=== PATIENT | male | born 1945 | race African-American/Black ===

== ENCOUNTER 2017-03-27 06:33 | Day surgery (SDC) | payer OTHER ==
[~2017-03-27] VITALS: Ht 182.9 cm; Wt 143.2 kg
[~2017-03-27 06:33] MED LIST: ACET325S8 PO; ALBU8I INH; ALLO300 PO; ASPI81TA82 PO; BENGCRE TOP; CARD180C5 PO; CYCL-36 PO; DENT1.1G; HYDR200T3 PO; LEVO50TA4 PO; LORA-474 PO; LORA1TAB PO; MAOX420T PO; OXYC-392 PO; PANT40TA3 PO; POLY1.4S EACH EYE; POTA-267 PO; PRAZ5 PO; PROZ20CA11 PO; REME45TA PO; VITA100020 PO; VITA20003 PO
[2017-03-27 07:00] VITALS: BP 176/83; PULSE 81; RESP 20; TEMP 97.5; O2SAT 93
[2017-03-27] MEDS ORDERED: SODIUM CHLOR 0.9% 1000 ML IV SCH (07:00)
[2017-03-27] MEDS ORDERED: SODIUM CHLORIDE 2 ML FLUSH PRN IV FLUSH (07:00)
[2017-03-27] MEDS ORDERED: GABA100C4 PO (07:03)
[2017-03-27] MEDS ORDERED: CALC1TAB87 PO (07:03)
[2017-03-27] MEDS ORDERED: TEST200I12 IM (07:03)
[2017-03-27] MEDS ORDERED: VENTAER INH (07:03)
[2017-03-27] MEDS ORDERED: TYLE325T PO (07:03)
[2017-03-27] MEDS ORDERED: FLUO20CA12 PO (07:03)
[2017-03-27] MEDS ORDERED: MORP60TA24 PO (07:03)
[2017-03-27] MEDS ORDERED: FAMO20TA2 PO (07:03)
[2017-03-27] MEDS ORDERED: MELO15TA20 PO (07:03)
[2017-03-27] MEDS ORDERED: LEVO75TA3 PO (07:03)
[2017-03-27] MEDS ORDERED: CYCL10TA PO (07:03)
[2017-03-27] MEDS ORDERED: PLAQ200T PO (07:03)
[2017-03-27] MEDS ORDERED: MULT-65 PO (07:03)
[2017-03-27 07:31] LABS: AUTOMATED NEUTROPHIL # 3.6 TH/MM3 (1.8-7.7); BASOPHIL % 0.7 % (0.0-2.0); EOSINOPHIL # 0.2 TH/MM3 (0-0.4); EOSINOPHIL % 3.5 % (0.0-4.0); HEMATOCRIT 34.9 % (39.0-51.0); HEMO FLAGS DIFF FINAL; LYMPH % 30.8 % (9.0-44.0); LYMPHOCYTE # 1.9 TH/MM3 (1.0-4.8); MEAN CORPUSCULAR HEMOGLOBIN 31.4 PG (27.0-34.0); MEAN CORPUSCULAR HGB CONC 32.4 % (32.0-36.0); MONO % 8.1 % (0.0-8.0); NEUT % 56.9 % (16.0-70.0); PLATELET COUNT 174 TH/MM3 (150-450); RED CELL DISTRIBUTION WIDTH 16.6 % (11.6-17.2); WHITE BLOOD COUNT 6.3 TH/MM3 (4.0-11.0)
[2017-03-27 07:40] LABS: APTT (PATIENT) 26.5 SEC (24.3-30.1); PROTHROMBIN TIME - PATIENT 10.5 SEC (9.8-11.6)
[2017-03-27] MEDS ORDERED: LIDOCAINE 1%/EPINEPHrine 1:100,000 SOLN 20 ML VIAL ONE (07:47)
[2017-03-27] MEDS ORDERED: MIDAZOLAM HCL 2 MG/2 ML VIAL ONE (08:14)
[2017-03-27] MEDS ORDERED: THROMBIN (TOPICAL) 5,000 UNIT VIAL ONE (08:21)
[2017-03-27] MEDS ORDERED: ONDANSETRON HCL 4 MG/2 ML VIAL ONE (08:22)
[2017-03-27] MEDS ORDERED: diphenhydrAMINE HCL 50 MG/ML VIAL ONE (08:22)
[2017-03-27] MEDS ORDERED: HYDROmorphone HCL PF 2 MG/ML VIAL ONE ×2 (08:39→08:46)
--- NOTE | 2017-03-27 08:56 | PD.RAD ---
Post CT Procedure Prog Note Pre Procedure Diagnosis: (1) Anemia Post Procedure Diagnosis: (1) Anemia Procedure Date: Mar 27, 2017 Supervising Radiologist: Jeff Holt JR Anesthesia: Conscious Sedation Plan of Activity Patient to Unit: [facility]OP[facility] Patient Condition: Good See PACS Report for procedural detail/treatment Biopsy Imaging Guidance: CT Side: Left Biopsy Procedure: Bone Marrow Specimen: Core Biopsy, Fine Needle Aspirate Findings: BM biopsy and aspiration. Good samples noted. Jr. Jonathon,Jeff Castillo MD Mar 27, 2017 08:56
[2017-03-27] MEDS ORDERED: SODIUM CHLORIDE 2 ML FLUSH BID IV FLUSH SCH (09:00)
[2017-03-27 09:15] VITALS: BP 129/58; PULSE 76; RESP 18; TEMP 97.2; O2SAT 95
[2017-03-27 09:30] VITALS: BP 159/71; PULSE 77; RESP 18; O2SAT 95
[2017-03-27 09:53] LABS: BONE MARROW PROCESSING COMPLETE; IRON STAIN DONE; JENNER GIEMSA STAIN DONE
--- NOTE | 2017-03-27 09:57 | RADRPT ---
EXAM DATE/TIME: 03/27/2017 08:25 [place] COMPARISON: No previous studies available for comparison. INDICATIONS : Monoclonal gammopathy and anemia. SEDATION TIME: 30 minutes BIOPSY SITE: Left MEDICATION(S): 1.) 6 mg midazolam (Versed) IV 2.) 4 mg hydromorphone (Dilaudid) IV 3.) 100 mcg fentanyl (Sublimaze) IV DEVICE(S): 1.) 11 gauge Bone marrow biopsy needle MEDICAL HISTORY : Hypertension. Anemia SURGICAL HISTORY : None. ENCOUNTER: Initial ACUITY: 1 day PAIN SCORE: 0/10 LOCATION: Left A total of one core specimen(s) were obtained and sent to the laboratory for pathologic evaluation. PROCEDURE: 1. CT guided bone marrow biopsy. 2. Conscious sedation with continuous EKG and oximetry monitoring. 3. EKG and oximetry remained stable throughout the procedure. Prior to the procedure informed consent was obtained. Any appropriate prior imaging studies were rev iewed. Using automated exposure control and adjustment of the mA and/or kV according to patient size , radiation dose was kept as low as reasonably achievable to obtain optimal diagnostic quality images . DICOM format image data is available electronically for review and comparison. The site was prepped in a sterile fashion. Full sterile technique was used, including cap, mask, saadia rile gloves and gown and a large sterile sheet. Hand hygiene and 2% chlorhexidine and/or betadine/al cohol prep was utilized per protocol for cutaneous antisepsis. The skin and subcutaneous tissues wer e infiltrated with local anesthetic solution. With CT guidance the previously identified target was localized. Biopsy was performed using the presc ribed needle as above. Following biopsy marrow aspiration was performed with repeat puncture. [place] te hemostasis was obtained with compression at the puncture site. Conscious sedation was performed with the prescribed dosages and duration as above in the presence of an independent trained radiology nurse to assist in the monitoring of the patient. EKG and oximetry remained stable throughout the procedure. The patient tolerated the procedure well and there were no complications. The patient was sent to Radiology Outpatient Unit in stable condition. CONCLUSION: 1. Uncomplicated CT guided bone marrow aspirate. 2. Uncomplicated CT guided bone marrow biopsy. Jeff Holt Jr., MD on March 27, 2017 at 9:55 Board Certified Radiologist. This report was verified electronically.
[2017-03-27 10:00] VITALS: BP 149/60; PULSE 77; RESP 18; O2SAT 95
[2017-03-27 10:30] VITALS: BP 127/60; PULSE 77; RESP 18; O2SAT 96
[2017-03-27 11:00] VITALS: BP 136/75; PULSE 70; RESP 18; O2SAT 94
== END 2017-03-27 12:15 | disposition home or self-care (01) ==
LOC: HRAD 06:33 → HRIP 06:38 → HRAD 12:15
PROVIDERS: ATTEND Internal Medicine
DX: D47.2 Monoclonal gammopathy (principal); D64.9 Anemia, unspecified; I10 Essential (primary) hypertension
CPT/HCPCS: 38221; 77012; 85025; 85097; 85610; 85730; 88184; 88185; 88237; 88264; 88280; 88305; 88311; 88313; 88341; 88342; 99152; 99153; C1830; G0364; J1170; J1200; J2250; J3010; J2405

== ENCOUNTER 2017-12-11 17:13 | Inpatient (IN) ==
--- NOTE | 2017-12-11 17:35 | ED ---
HPI General Chief Complaint: Neuro Symptoms/Deficit Stated Complaint: Neuro Time Seen by Provider: 12/11/17 17:25 Source: patient and family Mode of arrival: wheelchair Limitations: altered mental status History of Present Illness HPI narrative: Per daughter he was last seen normal last night. This morning when he was taken to a seniors group friends of his noted that he was not acting himself and seemed confused. However afterwards that function finished around 1:00 PM in the afternoon and he was still acting confused and now he was having more trouble ambulating on his own. Patient was brought in by private vehicle to emergency department for further evaluation MD complaint: confusion Timing confirmed by: family member Severity: moderate Consistency of symptoms: getting worse Related Data Home Medications Medication Instructions Recorded Confirmed Calcium 600 1 tab PO BID 12/12/17 12/12/17 albuterol sulfate 1 puff INHALATION Q4HR PRN 12/12/17 12/12/17 amlodipine-benazepril 1 cap PO DAILY 12/12/17 12/12/17 cholecalciferol (vitamin D3) 1 tab PO DAILY 12/12/17 12/12/17 cyanocobalamin (vitamin B-12) 1 tab PO DAILY 12/12/17 12/12/17 cyclobenzaprine 1 tab PO BID 12/12/17 12/12/17 diltiazem HCl 180 mg PO DAILY 12/12/17 12/12/17 enalapril maleate 5 mg PO DAILY 12/12/17 12/12/17 fluoxetine 20 mg PO TID 12/12/17 12/12/17 fluticasone [Flonase Allergy 1 spray INTRANASAL DAILY 12/12/17 12/12/17 Relief] furosemide [Lasix] 40 mg PO DAILY 12/12/17 12/12/17 hydroxychloroquine [Plaquenil] 1 tab PO BID 12/12/17 12/12/17 levothyroxine 75 mcg PO DAILY 12/12/17 12/12/17 mometasone [Asmanex Twisthaler] See Label Instructions .ROUTE 12/12/17 12/12/17 .COMPLEX omeprazole 1 cap PO BID 12/12/17 12/12/17 oxycodone 1 tab PO DAILY PRN 12/12/17 12/12/17 terazosin 5 mg PO DAILY 12/12/17 12/12/17 testosterone cypionate 200 mg IM Q2W 12/12/17 12/12/17 triamcinolone acetonide 1 applic TOPICAL BID 12/12/17 12/12/17 triamterene-hydrochlorothiazid 1 cap PO DAILY 12/12/17 12/12/17 Allergies Allergy/AdvReac Type Severity Reaction Status Date / Time diclofenac Allergy Severe Bleeding Unverified 12/11/17 17:25 etodolac Allergy Severe Bleeding Unverified 12/11/17 17:25 flurbiprofen Allergy Severe Bleeding Unverified 12/11/17 17:25 ibuprofen Allergy Severe Bleeding Unverified 12/11/17 17:25 indomethacin Allergy Severe Bleeding Unverified 12/11/17 17:25 ketoprofen Allergy Severe Bleeding Unverified 12/11/17 17:25 ketorolac Allergy Severe Bleeding Unverified 12/11/17 17:25 naproxen Allergy Severe Bleeding Unverified 12/11/17 17:25 oxaprozin Allergy Severe Bleeding Unverified 12/11/17 17:25 acetaminophen Allergy Mild Bleeding Unverified 12/11/17 17:25 celecoxib Allergy Mild Bleeding Unverified 12/11/17 17:25 propoxyphene Allergy Mild Bleeding Unverified 12/11/17 17:25 Review of Systems Except as stated in HPI: all other systems reviewed are negative PMFSH History History Provided By: Patient Social History Social History Substance History: Unable to Obtain Second Hand Smoke Exposure: No Smoking Status: Unknown if ever smoked How Often Do You Have a Drink Containing Alcohol: Unable to Obtain Exam Narrative Exam Narrative: GENERAL: patient appeared confused and findings suggestive of intoxication as patient is slow to respond but responded adequately ( orientation to year, month, president, place, name) SKIN: Warm and dry. HEAD: Atraumatic. Normocephalic. EYES: Pupils equal and round. No scleral icterus. No injection or drainage. ENT: No nasal bleeding or discharge. Mucous membranes pink and moist. NECK: Trachea midline. No JVD. CARDIOVASCULAR: Regular rate and rhythm. no rubs or gallops RESPIRATORY: No accessory muscle use. Clear to auscultation. Breath sounds equal bilaterally. GASTROINTESTINAL: obese, Abdomen soft, non-tender, nondistended. No rebound or guarding MUSCULOSKELETAL: Extremities without clubbing, cyanosis, or edema. No obvious deformities. NEUROLOGICAL: Awake but partially confused gcs 14/15, bilateral LE sensation intact, however, too weak to sustain his body weight, upper motor 5/5, no facial weakness...somnolent appearance, keeping good tv, pulse ox 98% Course Initial Documented Vital Signs Temperature 98.3 F 12/11/17 17:18 Pulse Rate 61 12/11/17 17:18 Respiratory Rate 20 12/11/17 17:18 Blood Pressure 125/57 L 12/11/17 17:18 Pulse Oximetry 95 12/11/17 17:18 Last Documented Vital Signs Temperature 97.9 F 12/14/17 08:00 Pulse Rate 67 12/14/17 08:00 Respiratory Rate 20 12/14/17 08:07 Blood Pressure 183/84 H 12/14/17 08:00 Pulse Oximetry 99 12/14/17 08:00 Critical Care Time Critical Care Time: Yes Total Critical Care Time: 30 Attestation: Aggregate critical care time was 30 minutes. Time to perform other separately billable procedures was not included in the critical care time. My time did not include minutes spent treating any other patients simultaneously or on activities that did not directly contribute to the patient's treatment. The services I provided to this patient were to treat and/or prevent clinically significant deterioration that could result in: [Permanent disability and or ] I provided critical care services requiring my management, as noted below: Chart data review, documentation time, medication orders and management, vital sign assessments/reviewing monitor data, ordering and reviewing lab tests, ordering and interpreting/reviewing x-rays and diagnostic studies, care of the patient and discussion of the patient with the admitting physicians. Medical Decision Making MDM Narrative Medical decision making narrative: CBC interpretation shows no leukocytosis, no left shift, normal platelet count, and mild anemia of 9.4/29.[address] read by radiologist as no acute intracranial abnormality such as intracranial hemorrhage, mass or bleed. Due to patient's somnolence a small amount of Narcan 0.8 was given as an IV 1 dose, the patient became much more alert and was complaining of pain at this point, I made the patient aware that he was not going to get receive any additional pain medication, because I believe that he was too somnolent secondary to polypharmacy. The daughter stated that he was recently started on Neurontin in addition to morphine and oxycodone that he takes on a regular basis for his neuropathy and fibromyalgia. Lab Data Result diagrams: 12/12/17 12:05 12/14/17 03:53 Lab Results 12/11/17 12/11/17 12/11/17 Range/Units 17:35 17:35 17:35 WBC 7.5 (4.0-11.0) th/mm3 RBC 3.02 L (4.50-5.90) mil/mm3 Hgb 9.4 L (13.0-17.0) gm/dL Hct 29.1 L (39.0-51.0) % MCV 96.1 (80.0-100.0) fL MCH 30.9 (27.0-34.0) pg MCHC 32.2 (32.0-36.0) % RDW 15.2 (11.6-17.2) % Plt Count 157 (150-450) th/mm3 MPV 9.1 (7.0-11.0) fL Neut % (Auto) 60.5 (16.0-70.0) % Lymph % (Auto) 28.7 (9.0-44.0) % Sterling % (Auto) 7.3 (0.0-8.0) % Eos % (Auto) 2.9 (0.0-4.0) % Baso % (Auto) 0.6 (0.0-2.0) % Neut # (Auto) 4.6 (1.8-7.7) th/mm3 Lymph # (Auto) 2.2 (1.0-4.8) th/mm3 Sterling # (Auto) 0.6 (0.0-0.9) th/mm3 Eos # (Auto) 0.2 (0.0-0.4) th/mm3 Baso # (Auto) 0.0 (0.0-0.2) th/mm3 WBC Differential . Differential Comment Auto diff final Sodium 138 (136-145) meq/L Potassium 4.1 (3.5-5.1) meq/L Chloride 105 (98-107) meq/L Carbon Dioxide 25.6 (21.0-32.0) meq/L Anion Gap 7 (5-15) meq/L BUN 46 H (7-18) mg/dL Creatinine 3.82 H (0.60-1.30) mg/dL Estimated GFR 19 L (>89) mL/min Random Glucose 102 (74-106) mg/dL Calcium 8.2 L (8.5-10.1) mg/dL Phosphorus (2.5-4.9) mg/dL Magnesium (1.5-2.5) mg/dL Total Bilirubin 0.2 (0.2-1.0) mg/dL Direct Bilirubin (0.0-0.2) mg/dL Indirect Bilirubin (0.0-0.8) mg/dL AST 18 (15-37) U/L ALT 23 (12-78) U/L Alkaline Phosphatase 101 (45-117) U/L Ammonia 29 (11-32) mcmol/L Troponin I Less than 0.02 L (0.02-0.05) ng/mL Total Protein 7.1 (6.4-8.2) g/dL Total Protein (PEP) (6.4-8.2) gm/dL Albumin 3.1 L (3.4-5.0) g/dL Vitamin B12 (193-986) pg/mL TSH 2.320 (0.358-3.740) uIU/mL Urine Color (Yellw/Straw) Urine Clarity (Clear) Urine pH (5.0-8.5) Ur Specific [place] (1.002-1.035) Urine Protein (Neg-Trace) mg/dL Urine Glucose (UA) (Negative) mg/dL Urine Ketones (Negative) mg/dL Urine Occult Blood (Negative) Urine Nitrate (Negative) Urine Bilirubin (Negative) Urine Urobilinogen (Less than 2) mg/dL Ur Leukocyte Esterase (Negative) Urine RBC (0-3) /hpf Urine WBC (0-5) /hpf Ur Squamous Epith Cells (0-5) /hpf Hyaline Casts (0-3) /lpf Urine Mucus (Occasional) /lpf Micro UA Comment Urine Culture Comments Urine Opiates Screen (Neg) Ur Barbiturates Screen (Neg) Ur Amphetamines Screen (Neg) U Benzodiazepines Scrn (Neg) Urine Cocaine Screen (Neg) U Cannabinoids Screen (Neg) Serum Alcohol Less than 3 (0-5) mg/dL 07/31/18 07/31/18 08/01/18 Range/Units 20:20 20:20 12:05 WBC 6.2 (4.0-11.0) th/mm3 RBC 3.20 L (4.50-5.90) mil/mm3 Hgb 10.0 L (13.0-17.0) gm/dL Hct 30.7 L (39.0-51.0) % MCV 95.8 (80.0-100.0) fL MCH 31.1 (27.0-34.0) pg MCHC 32.5 (32.0-36.0) % RDW 15.1 (11.6-17.2) % Plt Count 160 (150-450) th/mm3 MPV 9.8 (7.0-11.0) fL Neut % (Auto) 63.5 (16.0-70.0) % Lymph % (Auto) 26.5 (9.0-44.0) % Sterling % (Auto) 5.9 (0.0-8.0) % Eos % (Auto) 3.6 (0.0-4.0) % Baso % (Auto) 0.5 (0.0-2.0) % Neut # (Auto) 3.9 (1.8-7.7) th/mm3 Lymph # (Auto) 1.6 (1.0-4.8) th/mm3 Sterling # (Auto) 0.4 (0.0-0.9) th/mm3 Eos # (Auto) 0.2 (0.0-0.4) th/mm3 Baso # (Auto) 0.0 (0.0-0.2) th/mm3 WBC Differential . Differential Comment Auto diff final Sodium (136-145) meq/L Potassium (3.5-5.1) meq/L Chloride (98-107) meq/L Carbon Dioxide (21.0-32.0) meq/L Anion Gap (5-15) meq/L BUN (7-18) mg/dL Creatinine (0.60-1.30) mg/dL Estimated GFR (>89) mL/min Random Glucose (74-106) mg/dL Calcium (8.5-10.1) mg/dL Phosphorus (2.5-4.9) mg/dL Magnesium (1.5-2.5) mg/dL Total Bilirubin (0.2-1.0) mg/dL Direct Bilirubin (0.0-0.2) mg/dL Indirect Bilirubin (0.0-0.8) mg/dL AST (15-37) U/L ALT (12-78) U/L Alkaline Phosphatase (45-117) U/L Ammonia (11-32) mcmol/L Troponin I (0.02-0.05) ng/mL Total Protein (6.4-8.2) g/dL Total Protein (PEP) (6.4-8.2) gm/dL Albumin (3.4-5.0) g/dL Vitamin B12 (193-986) pg/mL TSH (0.358-3.740) uIU/mL Urine Color Yellow (Yellw/Straw) Urine Clarity Clear (Clear) Urine pH 5.0 (5.0-8.5) Ur Specific [place] 1.013 (1.002-1.035) Urine Protein 100 H (Neg-Trace) mg/dL Urine Glucose (UA) Negative (Negative) mg/dL Urine Ketones Negative (Negative) mg/dL Urine Occult Blood Negative (Negative) Urine Nitrate Negative (Negative) Urine Bilirubin Negative (Negative) Urine Urobilinogen 2.0 H (Less than 2) mg/dL Ur Leukocyte Esterase Negative (Negative) Urine RBC 1 (0-3) /hpf Urine WBC 2 (0-5) /hpf Ur Squamous Epith Cells <1 (0-5) /hpf Hyaline Casts 16 (0-3) /lpf Urine Mucus Few H (Occasional) /lpf Micro UA Comment Cath-culture not ind Urine Culture Comments Cath-cult not ind Urine Opiates Screen Pos H (Neg) Ur Barbiturates Screen Neg (Neg) Ur Amphetamines Screen Neg (Neg) U Benzodiazepines Scrn Neg (Neg) Urine Cocaine Screen Neg (Neg) U Cannabinoids Screen Neg (Neg) Serum Alcohol (0-5) mg/dL 12/12/17 12/12/17 12/13/17 Range/Units 12:05 12:05 05:12 WBC (4.0-11.0) th/mm3 RBC (4.50-5.90) mil/mm3 Hgb (13.0-17.0) gm/dL Hct (39.0-51.0) % MCV (80.0-100.0) fL MCH (27.0-34.0) pg MCHC (32.0-36.0) % RDW (11.6-17.2) % Plt Count (150-450) th/mm3 MPV (7.0-11.0) fL Neut % (Auto) (16.0-70.0) % Lymph % (Auto) (9.0-44.0) % Sterling % (Auto) (0.0-8.0) % Eos % (Auto) (0.0-4.0) % Baso % (Auto) (0.0-2.0) % Neut # (Auto) (1.8-7.7) th/mm3 Lymph # (Auto) (1.0-4.8) th/mm3 Sterling # (Auto) (0.0-0.9) th/mm3 Eos # (Auto) (0.0-0.4) th/mm3 Baso # (Auto) (0.0-0.2) th/mm3 WBC Differential Differential Comment Sodium 141 146 H (136-145) meq/L Potassium 4.1 4.3 (3.5-5.1) meq/L Chloride 107 113 H (98-107) meq/L Carbon Dioxide 26.0 27.6 (21.0-32.0) meq/L Anion Gap 8 5 (5-15) meq/L BUN 43 H 39 H (7-18) mg/dL Creatinine 2.40 H 1.74 H (0.60-1.30) mg/dL Estimated GFR 33 L 47 L (>89) mL/min Random Glucose 122 H 94 (74-106) mg/dL Calcium 8.5 8.0 L (8.5-10.1) mg/dL Phosphorus 2.5 (2.5-4.9) mg/dL Magnesium 1.7 (1.5-2.5) mg/dL Total Bilirubin 0.1 L (0.2-1.0) mg/dL Direct Bilirubin Less than 0.1 (0.0-0.2) mg/dL Indirect Bilirubin 0.0 (0.0-0.8) mg/dL AST 15 (15-37) U/L ALT 17 (12-78) U/L Alkaline Phosphatase 91 (45-117) U/L Ammonia (11-32) mcmol/L Troponin I (0.02-0.05) ng/mL Total Protein 6.2 L D (6.4-8.2) g/dL Total Protein (PEP) 6.2 L (6.4-8.2) gm/dL Albumin 2.5 L D (3.4-5.0) g/dL Vitamin B12 801 (193-986) pg/mL TSH 0.749 (0.358-3.740) uIU/mL Urine Color (Yellw/Straw) Urine Clarity (Clear) Urine pH (5.0-8.5) Ur Specific [place] (1.002-1.035) Urine Protein (Neg-Trace) mg/dL Urine Glucose (UA) (Negative) mg/dL Urine Ketones (Negative) mg/dL Urine Occult Blood (Negative) Urine Nitrate (Negative) Urine Bilirubin (Negative) Urine Urobilinogen (Less than 2) mg/dL Ur Leukocyte Esterase (Negative) Urine RBC (0-3) /hpf Urine WBC (0-5) /hpf Ur Squamous Epith Cells (0-5) /hpf Hyaline Casts (0-3) /lpf Urine Mucus (Occasional) /lpf Micro UA Comment Urine Culture Comments Urine Opiates Screen (Neg) Ur Barbiturates Screen (Neg) Ur Amphetamines Screen (Neg) U Benzodiazepines Scrn (Neg) Urine Cocaine Screen (Neg) U Cannabinoids Screen (Neg) Serum Alcohol (0-5) mg/dL 12/14/17 Range/Units 03:53 WBC (4.0-11.0) th/mm3 RBC (4.50-5.90) mil/mm3 Hgb (13.0-17.0) gm/dL Hct (39.0-51.0) % MCV (80.0-100.0) fL MCH (27.0-34.0) pg MCHC (32.0-36.0) % RDW (11.6-17.2) % Plt Count (150-450) th/mm3 MPV (7.0-11.0) fL Neut % (Auto) (16.0-70.0) % Lymph % (Auto) (9.0-44.0) % Sterling % (Auto) (0.0-8.0) % Eos % (Auto) (0.0-4.0) % Baso % (Auto) (0.0-2.0) % Neut # (Auto) (1.8-7.7) th/mm3 Lymph # (Auto) (1.0-4.8) th/mm3 Sterling # (Auto) (0.0-0.9) th/mm3 Eos # (Auto) (0.0-0.4) th/mm3 Baso # (Auto) (0.0-0.2) th/mm3 WBC Differential Differential Comment Sodium 145 (136-145) meq/L Potassium 4.3 (3.5-5.1) meq/L Chloride 111 H (98-107) meq/L Carbon Dioxide 29.5 (21.0-32.0) meq/L Anion Gap 5 (5-15) meq/L BUN 27 H (7-18) mg/dL Creatinine 1.37 H (0.60-1.30) mg/dL Estimated GFR 62 L (>89) mL/min Random Glucose 84 (74-106) mg/dL Calcium 8.1 L (8.5-10.1) mg/dL Phosphorus (2.5-4.9) mg/dL Magnesium (1.5-2.5) mg/dL Total Bilirubin (0.2-1.0) mg/dL Direct Bilirubin (0.0-0.2) mg/dL Indirect Bilirubin (0.0-0.8) mg/dL AST (15-37) U/L ALT (12-78) U/L Alkaline Phosphatase (45-117) U/L Ammonia (11-32) mcmol/L Troponin I (0.02-0.05) ng/mL Total Protein (6.4-8.2) g/dL Total Protein (PEP) (6.4-8.2) gm/dL Albumin (3.4-5.0) g/dL Vitamin B12 (193-986) pg/mL TSH (0.358-3.740) uIU/mL Urine Color (Yellw/Straw) Urine Clarity (Clear) Urine pH (5.0-8.5) Ur Specific [place] (1.002-1.035) Urine Protein (Neg-Trace) mg/dL Urine Glucose (UA) (Negative) mg/dL Urine Ketones (Negative) mg/dL Urine Occult Blood (Negative) Urine Nitrate (Negative) Urine Bilirubin (Negative) Urine Urobilinogen (Less than 2) mg/dL Ur Leukocyte Esterase (Negative) Urine RBC (0-3) /hpf Urine WBC (0-5) /hpf Ur Squamous Epith Cells (0-5) /hpf Hyaline Casts (0-3) /lpf Urine Mucus (Occasional) /lpf Micro UA Comment Urine Culture Comments Urine Opiates Screen (Neg) Ur Barbiturates Screen (Neg) Ur Amphetamines Screen (Neg) U Benzodiazepines Scrn (Neg) Urine Cocaine Screen (Neg) U Cannabinoids Screen (Neg) Serum Alcohol (0-5) mg/dL Imaging Data Radiologist's impression: Abdomen/Bladder Ultrasound 12/11/17 00:00 CONCLUSION: 1. 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 2. 6.3 cm lower pole left renal cyst. 3. Overall no significant change from February 2016. Chest X-Ray 12/11/17 17:26 CONCLUSION: Mild cardiac enlargement. Minimal basilar or dependent atelectasis. Head CT 12/11/17 17:26 CONCLUSION: 1. No acute intracranial abnormality. . Discharge Plan Discharge Disposition Patient Disposition: 30 Still Patient Discharge Condition Condition: Stable Discharge Details Diagnosis: Acute alteration in mental status Physicians Team ED Provider: Trev Field Primary Care Provider: Kanwal Parsons Attending Provider: Hank Griffith Other Providers: Esther Dietz ; Amy,[employer] Status ED Status: Left Department Discharge Information Discharge Date/Time: 12/11/17 21:27
[2017-12-11] MEDS: Sod Chloride 0.9% Inj 1,000 ML IV.CONT SCH (17:58)
[2017-12-11 18:04] LABS: Baso % (Auto) 0.6 % (0.0-2.0); Eos # (Auto) 0.2 th/mm3 (0.0-0.4); Eos % (Auto) 2.9 % (0.0-4.0); Hematocrit 29.1 % (39.0-51.0); Hemoglobin 9.4 gm/dL (13.0-17.0); Lymph # (Auto) 2.2 th/mm3 (1.0-4.8); Lymph % (Auto) 28.7 % (9.0-44.0); Mean Corpuscular HGB Conc 32.2 % (32.0-36.0); Mean Corpuscular Hemoglobin 30.9 pg (27.0-34.0); Mean Corpuscular Volume 96.1 fL (80.0-100.0); Mean Platelet Volume 9.1 fL (7.0-11.0); Mono # (Auto) 0.6 th/mm3 (0.0-0.9); Mono % (Auto) 7.3 % (0.0-8.0); Neut # (Auto) 4.6 th/mm3 (1.8-7.7); Neut % (Auto) 60.5 % (16.0-70.0); Platelet Count 157 th/mm3 (150-450); Red Blood Count 3.02 mil/mm3 (4.50-5.90); Red Cell Distribution Width 15.2 % (11.6-17.2); White Blood Count 7.5 th/mm3 (4.0-11.0)
--- NOTE | 2017-12-11 18:10 | CT ---
EXAM DATE: 12/11/2017 6:04 PM EDT AGE/SEX: 72 years / Male INDICATIONS: Altered mental status. CLINICAL DATA: This is the patient's initial encounter. Patient reports that signs and symptoms have been present for 1 day and indicates a pain score of 5/10. MEDICAL/SURGICAL HISTORY: None. None. RADIATION DOSE: 46.42 CTDI (mGy) COMPARISON: No prior exams available for comparison. TECHNIQUE: CT of the head without contrast. Using automated exposure control and adjustment of the mA and/or kV according to patient size, radiation dose was kept as low as reasonably achievable to ob tain optimal diagnostic quality images. DICOM format image data is available electronically for revi ew and comparison. FINDINGS: Cerebrum: The ventricles are normal for age. No evidence of midline shift, mass lesion, hemorrhage or acute infarction. No extraaxial fluid collections are seen. Posterior Fossa: The cerebellum and brainstem are intact. The 4th ventricle is midline. The cerebe llopontine angle is unremarkable. Extracranial: The visualized portion of the orbits is intact. Skull: The calvaria is intact. No evidence of skull fracture. CONCLUSION: 1. No acute intracranial abnormality. . Electronically signed by: Jef Deras MD 12/11/2017 6:09 PM EDT
[2017-12-11] MEDS ORDERED: Naloxone Inj 0.4 MG/ML Vial IV.PUSH ONE (18:13)
[2017-12-11 18:27] LABS: Albumin 3.1 g/dL (3.4-5.0); Anion Gap 7 meq/L (5-15); Aspartate Aminotransferase 18 U/L (15-37); Blood Urea Nitrogen 46 mg/dL (7-18); Calcium 8.2 mg/dL (8.5-10.1); Carbon Dioxide 25.6 meq/L (21.0-32.0); Chloride 105 meq/L (98-107); Glomerular Filtration Rate 19 mL/min (>89); Glucose,Random 102 mg/dL (74-106); Potassium 4.1 meq/L (3.5-5.1); Sodium 138 meq/L (136-145)
[2017-12-11 18:28] LABS: Alanine Aminotransferase 23 U/L (12-78)
[2017-12-11 18:37] LABS: Alkaline Phosphatase 101 U/L (45-117); Total Protein 7.1 g/dL (6.4-8.2)
[2017-12-11] MEDS ORDERED: Acetaminophen 325 MG Tablet PO PRN (18:55)
[2017-12-11] MEDS ORDERED: Bisacodyl 10 MG Supp RECTAL PRN (18:55)
--- NOTE | 2017-12-11 19:15 | XR ---
EXAM DATE: 12/11/2017 6:50 PM EDT AGE/SEX: 72 years / Male INDICATIONS: Shortness of breath and cough. CLINICAL DATA: This is the patient's initial encounter. Patient reports that signs and symptoms have been present for 2 days and indicates a pain score of Nonresponsive. MEDICAL/SURGICAL HISTORY: Non-responsive. Non-responsive. [place] [facility] [place] . FINDINGS: Mild cardiac enlargement. Tortuous aorta. Minimal dependent atelectasis. No effusion or pneumothorax. CONCLUSION: Mild cardiac enlargement. Minimal basilar or dependent atelectasis. Electronically signed by: Jef Deras MD 12/11/2017 7:14 PM EDT
--- NOTE | 2017-12-11 20:32 | US ---
EXAM DATE: 12/11/2017 8:25 PM EDT AGE/SEX: 72 years / Male INDICATIONS: Increased lab values. CLINICAL DATA: This is the patient's initial encounter. Patient reports that signs and symptoms have been present for 1 day and indicates a pain score of 0/10. MEDICAL/SURGICAL HISTORY: . Hypercholesterolemia. Hypertension. Gastroesophageal reflux disease . Bronchitis. Asthma. Arthritis. . Hiatal hernia repair. Mass on testicle removed. COMPARISON: [facility] – [place] KIDNEY/RENAL/BLADDER, 03/08/2016. . MEASUREMENTS: Right Kidney:__. Not visualized. Left Kidney:__14.9 x 9.6 x 8.6 cm FINDINGS: Right Kidney: Not visualized. Left Kidney: Normal echotexture and cortical thickness. 6.3 cm cyst lower pole. Bladder: Within normal limits given the degree of distension. Other: None. CONCLUSION: 1. 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 2. 6.3 cm lower pole left renal cyst. 3. Overall no significant change from February 2016. Electronically signed by: Jef Deras MD 12/11/2017 8:31 PM EDT
--- NOTE | 2017-12-11 21:30 | P.HPIM ---
History of Present Illness Primary Care Physician: Kanwal Parsons MD Chief Complaint: AMS History of Present Illness: 72 y/o male with a history of HTN, anemia, bph, hypothyroid, depression, chronic pain and neuropathy was brought in to the ED with AMS. According to the ER physician patient drove to the [place] today and was told he was acting confused so the family brought him in. Upon examination patient appears sleepy but is oriented x 4. He states he took his medications today as directed but last night was his first dose of Lyrica. He denies any chest pain, sob, dysuria, fever or chills. Inpatient Certification: I certify that the inpatient services were ordered in accordance with Medicare regulations governing the order. This includes certification that hospital inpatient services are reasonable and necessary and in the case of services not specified as inpatient-only under 42 CFR 419.22(n), that they are appropriately provided as inpatient services in accordance to with the 2-midnight benchmark under 43 CFR 412.3(e) Estimated Total Length of Stay (Days): 3 Plans for Post Hospital Care: SNF Review of Systems All other systems reviewed negative except as stated in HPI PMFSH - History History Provided By: Patient - Medical History Medical History: Medical History (Last Updated 12/11/17 @ 22:42 by FELICITA Nassar) Anemia BPH (benign prostatic hyperplasia) Chronic pain Depression HTN (hypertension) Hypothyroid Neuropathy Rheumatoid arthritis - Surgical History Surgical History: Surgical History (Last Updated 12/11/17 @ 22:42 by FELICITA Nassar) H/O hernia repair H/O unilateral nephrectomy - Family History Family History: Family History (Last Updated 12/11/17 @ 22:42 by FELICITA Nassar) Other Family history of hypertension - Tobacco History Second Hand Smoke Exposure: No Tobacco Use In Past 30 Days: No Smoking Status: Former smoker - Alcohol History How Often Do You Have a Drink Containing Alcohol: Never - Substance Use History Substance History: No History of Abuse - Travel History Recent Travel in the [place] Within the Last 8 Weeks: No Recent Travel Out of the Country Within the Last 8 Weeks: No - Immunization History Tetanus Immunization: >5 Years Hx Influenza Vaccine This Season: No Medications and Allergies Active Medications: Active Medications Acetaminophen (Tylenol) 650 mg PO Q4H PRN PRN Reason: Temp > 100.4 Al Hydroxide/Mg Hydroxide (Milk Of Magnesia Liq) 30 ml PO Q12H PRN PRN Reason: Mild Constipation Bisacodyl (Dulcolax Supp) 10 mg RECTAL DAILY PRN PRN Reason: SEVERE CONSITIPATION Sodium Chloride (Ns Inj) 1,000 mls @ 125 mls/hr IV.CONT .Q8H [facility]VAL[facility] Last Admin: 12/11/17 17:58 Dose: 125 mls/hr Lactulose (Lactulose Liq) 30 ml PO DAILY PRN PRN Reason: SEVERE CONSITIPATION Ondansetron HCl (Zofran Inj) 4 mg IV.PUSH Q6H PRN PRN Reason: NAUSEA OR VOMITING Senna/Docusate Sodium (Marcy-Colace) 1 tab PO BID [facility] Sennosides (Senokot) 17.2 mg PO Q12H PRN PRN Reason: Moderate Constipation Sodium Chloride (Ns Flush) 2 ml IV.FLUSH PRN PRN PRN Reason: FLUSH AFTER USING IV ACCESS Allergies Allergy/AdvReac Type Severity Reaction Status Date / Time diclofenac Allergy Severe Bleeding Unverified 12/11/17 17:25 etodolac Allergy Severe Bleeding Unverified 12/11/17 17:25 flurbiprofen Allergy Severe Bleeding Unverified 12/11/17 17:25 ibuprofen Allergy Severe Bleeding Unverified 12/11/17 17:25 indomethacin Allergy Severe Bleeding Unverified 12/11/17 17:25 ketoprofen Allergy Severe Bleeding Unverified 12/11/17 17:25 ketorolac Allergy Severe Bleeding Unverified 12/11/17 17:25 naproxen Allergy Severe Bleeding Unverified 12/11/17 17:25 oxaprozin Allergy Severe Bleeding Unverified 12/11/17 17:25 acetaminophen Allergy Mild Bleeding Unverified 12/11/17 17:25 celecoxib Allergy Mild Bleeding Unverified 12/11/17 17:25 propoxyphene Allergy Mild Bleeding Unverified 12/11/17 17:25 Home Medications Medication Instructions Recorded Confirmed Type Unable to Obtain Home Meds 12/11/17 12/11/17 History Exam Vital signs: Vital Signs 12/11/17 17:18 12/11/17 18:15 12/11/17 19:38 Temperature 98.3 F Pulse Rate 61 57 L 56 L Respiratory Rate 20 16 16 Blood Pressure 125/57 L 127/59 L 127/59 L Pulse Oximetry 95 96 12/11/17 21:22 Temperature 97.2 F L Pulse Rate 59 L Respiratory Rate 20 Blood Pressure 159/74 H Pulse Oximetry 95 Intake & Output 12/11/17 12/11/17 12/12/17 06:59 18:59 06:59 Weight 136.078 kg Narrative: GENERAL: This is a well-nourished, obese patient, in no apparent distress. CARDIOVASCULAR: Regular rate and rhythm without murmurs, gallops, or rubs. RESPIRATORY: Clear to auscultation. Breath sounds equal bilaterally. No wheezes , rales, or rhonchi. GASTROINTESTINAL: Abdomen soft, non-tender, nondistended. Normal active bowel sounds MUSCULOSKELETAL: Extremities without clubbing, cyanosis. Dependant edema noted. NEURO: Sleepy & Oriented x4 to person, place, time, situation. Moves all ext x4 Results - Labs CBC & Chem 7: 12/11/17 17:35 12/11/17 17:35 Labs: Short CBC 12/11/17 Range/Units 17:35 WBC 7.5 (4.0-11.0) th/mm3 Hgb 9.4 L (13.0-17.0) gm/dL Hct 29.1 L (39.0-51.0) % Plt Count 157 (150-450) th/mm3 BMP 12/11/17 17:35 Sodium 138 Potassium 4.1 Chloride 105 Carbon Dioxide 25.6 BUN 46 H Creatinine 3.82 H Calcium 8.2 L Cardiac Enzymes 12/11/17 Range/Units 17:35 Troponin I Less than 0.02 L (0.02-0.05) ng/mL Liver Function 12/11/17 Range/Units 17:35 Total Bilirubin 0.2 (0.2-1.0) mg/dL AST 18 (15-37) U/L ALT 23 (12-78) U/L Alkaline Phosphatase 101 (45-117) U/L Albumin 3.1 L (3.4-5.0) g/dL - Imaging Impressions Abdomen/Bladder Ultrasound 12/11/17 00:00 CONCLUSION: 1. 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 2. 6.3 cm lower pole left renal cyst. 3. Overall no significant change from February 2016. Chest X-Ray 12/11/17 17:26 CONCLUSION: Mild cardiac enlargement. Minimal basilar or dependent atelectasis. Head CT 12/11/17 17:26 CONCLUSION: 1. No acute intracranial abnormality. . Caprini VTE Risk Assessment Caprini VTE Risk Assessment: Moderate/High Risk (score >= 2) Caprini Risk Assessment Model: Point Value = 1 Point Value = 2 Point Value = 3 Point Value = 5 Age 41-60 Minor surgery BMI > 25 kg/m2 Swollen legs Varicose veins or History of unexplained or recurrent spontaneous Oral contraceptives or hormone replacement Sepsis (< 1 month) Serious lung disease, including pneumonia (< 1 month) Abnormal pulmonary function Acute myocardial infarction Congestive heart failure (< 1 month) History of inflammatory bowel disease Medical patient at bed rest Age 61-74 Arthroscopic surgery Major open surgery (> 45 min) Laparoscopic surgery (> 45 min) Malignancy Confined to bed (> 72 hours) Immobilizing plaster cast Central venous access Age >= 75 History of VTE Family history of VTE Factor V Leiden Prothrombin [id number] Lupus anticoagulant Anticardiolipin antibodies Elevated serum homocysteine Heparin-induced thrombocytopenia Other congenital or acquired thrombophilia Stroke (< 1 month) Elective arthroplasty Hip, pelvis, or leg fracture Acute spinal cord injury (< 1 month) Prophylaxis Regimen: Total Risk Factor Score Risk Level Prophylaxis Regimen 0-1 Low Early ambulation 2 Moderate Order ONE of the following: *Sequential Compression Device (SCD) *Heparin 5000 units SQ BID 3-4 Higher Order ONE of the following medications: *Heparin 5000 units SQ TID *Enoxaparin/Lovenox 40 mg SQ daily (WT < 150 kg, CrCl > 30 mL/min) *Enoxaparin/Lovenox 30 mg SQ daily (WT < 150 kg, CrCl > 10-29 mL/min) *Enoxaparin/Lovenox 30 mg SQ BID (WT < 150 kg, CrCl > 30 mL/min) AND/OR *Sequential Compression Device (SCD) 5 or more Highest Order ONE of the following medications: *Heparin 5000 units SQ TID (Preferred with Epidurals) *Enoxaparin/Lovenox 40 mg SQ daily (WT < 150 kg, CrCl > 30 mL/min) *Enoxaparin/Lovenox 30 mg SQ daily (WT < 150 kg, CrCl > 10-29 mL/min) *Enoxaparin/Lovenox 30 mg SQ BID (WT < 150 kg, CrCl > 30 mL/min) AND *Sequential Compression Device (SCD) Assessment and Plan - Plan 72 y/o male with a history of HTN, anemia, bph, hypothyroid, depression, chronic pain and neuropathy was brought in to the ED with AMS. AMS likely due to acute kidney injury Head CT reviewed and shows no acute intracranial abnormality -Neuro checks -Kidney ultrasound ordered, reviewed and shows a 6.3 cm lower pole renal cyst, no hydronephrosis -Consult nephrology for evaluation -UA ordered -Urine drug screen ordered Acute Kidney Injury Creatine 3.82, baseline 1.1 -IVF for hydration -Trend creatine -avoid nephrotoxins HTN, chronic -Resume home medications when med rec is verified by family Hypothyroid, chronic -Resume home medications when med rec is verified by family -Check TSH in am DVT prophylaxis: Heparin Discussed Condition With: Patient and RN
[2017-12-11 22:42] LABS: Amphetamine Screen,Urine Neg (Neg); Barbiturate Screen,Urine Neg (Neg); Cannabinoid Screen,Urine Neg (Neg); Cocaine Screen,Urine Neg (Neg)
[2017-12-11 22:44] LABS: Opiate Screen,Urine Pos (Neg)
[2017-12-11 23:11] LABS: Bilirubin,Urine Negative (Negative); Clarity,Urine Clear (Clear); Color,Urine Yellow (Yellw/Straw); Glucose,Urine (UA) Negative (Negative); Hyaline Casts,Urine 16 /lpf (0-3); Leukocyte Esterase,Urine Negative (Negative); Mucus,Urine Few /lpf (Occasional); Nitrite,Urine Negative (Negative); Specific Gravity,Urine 1.013 (1.002-1.035); Squamous Epithelial Cell,Urine <1 /hpf (0-5)
[2017-12-12] MEDS ORDERED: Morphine Inj 4 MG/ML Vial IV.PUSH ONE (00:12)
[2017-12-12] MEDS: Senna/Docusate Sodium 8.6/50 MG Tablet PO SCH ×3 (06:22→20:54)
[2017-12-12] MEDS: Sod Chloride 0.9% Inj 1,000 ML IV.CONT SCH ×3 (06:22→16:22)
[2017-12-12] MEDS: Heparin - SQ 10,000 UNITS/ML Vial SQ SCH ×3 (06:23→21:02)
--- NOTE | 2017-12-12 10:20 | ECG ---
Date Performed: 12/11/2017 Time Performed: 17:19:59 PTAGE: 72 years EKG: Sinus rhythm NONSPECIFIC T-WAVE ABNORMALITY BORDERLINE ECG Since the PREVIOUS TRACING , no significant change noted PREVIOUS TRACING DOCTOR: Eri Fernando Interpretating Date/Time 12/12/2017 10:18:50
--- NOTE | 2017-12-12 11:49 | MB ---
cc: Esther Dietz MD DATE: 12/12/2017 REASON FOR CONSULTATION: Elevated BUN and creatinine, for evaluation. HISTORY OF PRESENT ILLNESS: This is a 72-year-old male with past medical history of hypertension, anemia, benign prostatic hypertrophy, hypothyroidism, chronic generalized pain syndrome with neuropathy, history of depression and chronic kidney disease, who was brought to the hospital by the EMS because of confusion and tremors. I was called to see the patient because of elevated BUN and creatinine. The patient was found to have a BUN of 46 and creatinine of 3.8 yesterday evening. Looking back, he has creatinine of 1.1-1.2 in 02/2016. He had Mata catheter put in in the emergency room. The patient seems to be oriented now. He is feeling better. His tremors are improved. He denies any headache or dizziness. The patient was given Lyrica, which was started 2 days ago before he came to the hospital for his neuropathy. Denies any nausea or vomiting. There is no history of diarrhea. Denies any dysuria, hematuria or difficulty in passing urine at home. Denies taking any nonsteroidal anti-inflammatory drugs. He was taking narcotics and occasionally Tylenol. PAST MEDICAL HISTORY: Hypertension, chronic anemia, benign prostatic hypertrophy, possible chronic kidney disease, hypothyroidism, and neuropathy. PAST SURGICAL HISTORY: History of hernia repair. REVIEW OF SYSTEMS: Denies any history of fever. No headache, dizziness or blurring of vision. He has no shortness of breath. He has been feeling weak and tired. Occasionally has nausea. There is no vomiting. No abdominal pain. No history of diarrhea. No dysuria or hematuria. He has generalized body pain for which he is taking narcotics and occasionally Tylenol. Denies taking any NSAIDS. SOCIAL HISTORY: The patient lives with his son. He has past history of smoking. No history of alcoholism. FAMILY HISTORY: Noncontributory. ALLERGIES: HE IS ALLERGIC TO DICLOFENAC, FLURBIPROFEN, IBUPROFEN, AND INDOMETHACIN. MEDICATIONS: Currently, he is on following medications: 1. Tylenol as needed. 2. Dulcolax as needed. 3. Heparin 5000 units subcutaneous every 8 hours. 4. Lactulose 30 mL p.r.n. 5. Zofran p.r.n. 6. Marcy-Colace p.r.n. 7. Senokot p.r.n. 8. IV fluids, getting normal saline at 125 an hour. PHYSICAL EXAMINATION: GENERAL: The patient is awake, alert. He is not in acute distress. VITAL SIGNS: His last blood pressure is 152/70. There is no documented hypotension during this admission. Temperature 97.9. Oxygen saturation 94-95% on room air. HEENT: Pupils are mid constricted. Nonicteric sclerae. Conjunctivae are pale. NECK: Supple. JVD is not elevated. LUNGS: The patient has bilateral decreased air entry with occasional wheezing. HEART: S1, S2. Regular rate and rhythm. ABDOMEN: Distended, obese, soft, lax. There is no tenderness. Bowel sounds positive. EXTREMITIES: He has bilateral 1+ leg edema. LABORATORY INVESTIGATIONS: WBC count is 7.5, hemoglobin 9.4, platelet count of 157. Sodium 138, potassium 4.1, chloride 105, bicarbonate 25.6, BUN 46, creatinine 3.8, calcium 8.2. AST, ALT normal. Troponin I is less than 0.02. Albumin is 3.1. TSH is 2.32. Urinalysis showing protein of 100. Toxicology screen was positive for opiates. Serum alcohol level was less than 3. IMAGING STUDIES: The patient had a CT scan of the brain that was done without IV contrast and it shows no acute intracranial abnormality. Chest x-ray was done which shows mild cardiac enlargement with minimal basal atelectasis. Abdominal ultrasound was done, which shows the right kidney was not visualized and a 6.3 cm lower pole left renal cyst. ASSESSMENT AND PLAN: 1. Acute kidney injury with possibility of chronic kidney disease. 2. Altered mental status and confusion. 3. Possible dehydration. 4. Hypertension. 5. Anemia. 6. Hypothyroidism. The patient has been getting IV fluid. He has the Mata catheter. He is passing urine. There are no repeat labs done. His creatinine was 3.8 on presentation. 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 He denies any surgery done and the left kidney has a big cyst, so he most likely has chronic kidney disease because of hypertensive or renovascular disease and maybe there is an element of acute kidney injury because of the dehydration. I agree with continued IV fluid. I will check the basic workup including the serology for VIR[place]IE, ANCA and serum protein electrophoresis since the patient also has anemia and generalized body pain. Avoid any nephrotoxins. Follow the urine output and the BUN and creatinine. Thank you for the consultation and I will follow the patient while he is in the hospital. MD JOSEPH Garcia/MAYTE , 11:19 AM , 11:31 AM
--- NOTE | 2017-12-12 13:01 | P.PNIM ---
Subjective Interval history: The patient's family was at the bedside. The patient endorses feeling confused yesterday and having tremors. He also seems to have memory problems and speech difficulties. He says he knows he is missing one kidney. Physical Exam Vital signs: Vital Signs 12/11/17 17:18 12/11/17 18:15 12/11/17 19:38 Temperature 98.3 F Pulse Rate 61 57 L 56 L Respiratory Rate 20 16 16 Blood Pressure 125/57 L 127/59 L 127/59 L Pulse Oximetry 95 96 12/11/17 21:22 12/12/17 00:00 12/12/17 00:35 Temperature 97.2 F L 97.9 F Pulse Rate 59 L 60 Respiratory Rate 20 20 20 Blood Pressure 159/74 H 152/70 H Pulse Oximetry 95 95 12/12/17 04:11 12/12/17 08:00 Temperature 97.2 F L 97.5 F L Pulse Rate 55 L 56 L Respiratory Rate 17 Blood Pressure 147/72 H 157/74 H Pulse Oximetry 94 L 95 Intake & Output 12/11/17 12/12/17 12/12/17 18:59 06:59 18:59 Intake Total 1480 / 1480 1000 / 1000 Output Total 1500 / 1500 Balance -20 / -20 1000 / 1000 Weight 136.078 kg Intake: IV 1000 / 1000 1000 / 1000 NS Inj 1,000 ML @ 125 mls/hr IV 1000 / 1000 1000 / 1000 .CONT .Q8H [facility] [place] Rx#:[id number] Oral 480 / 480 Output: Urine 1500 / 1500 Narrative: GENERAL: This is a well-nourished, obese patient, in no apparent distress. CARDIOVASCULAR: Regular rate and rhythm without murmurs, gallops, or rubs. RESPIRATORY: Clear to auscultation. Breath sounds equal bilaterally. No wheezes , rales, or rhonchi. GASTROINTESTINAL: Abdomen soft, non-tender, nondistended. Normal active bowel sounds MUSCULOSKELETAL: Extremities without clubbing, cyanosis. Dependant edema noted. NEURO: A&O x3. Moves all ext x4. Mild dysarthria noted. - Urinary Catheter Management Indwelling Urethral Catheter Cath placed during this visit: yes Reason for continuing: Chronic Urinary Retention Insertion date: 12/11/17 Insertion time: 20:20 Results - Labs CBC & Chem 7: 12/12/17 12:05 12/11/17 17:35 Laboratory Results - last 24 hr 12/11/17 12/11/17 12/11/17 17:35 17:35 17:35 WBC 7.5 RBC 3.02 L Hgb 9.4 L Hct 29.1 L MCV 96.1 MCH 30.9 MCHC 32.2 RDW 15.2 Plt Count 157 MPV 9.1 Neut % (Auto) 60.5 Lymph % (Auto) 28.7 [place] % (Auto) 7.3 Eos % (Auto) 2.9 Baso % (Auto) 0.6 Neut # (Auto) 4.6 Lymph # (Auto) 2.2 [place] # (Auto) 0.6 Eos # (Auto) 0.2 Baso # (Auto) 0.0 WBC Differential . Differential Comment Auto diff final Sodium 138 Potassium 4.1 Chloride 105 Carbon Dioxide 25.6 Anion Gap 7 BUN 46 H Creatinine 3.82 H Estimated GFR 19 L Random Glucose 102 Calcium 8.2 L Total Bilirubin 0.2 AST 18 ALT 23 Alkaline Phosphatase 101 Ammonia 29 Troponin I Less than 0.02 L Total Protein 7.1 Albumin 3.1 L TSH 2.320 Urine Color Urine Clarity Urine pH Ur Specific [place] Urine Protein Urine Glucose (UA) Urine Ketones Urine Occult Blood Urine Nitrate Urine Bilirubin Urine Urobilinogen Ur Leukocyte Esterase Urine RBC Urine WBC Ur Squamous Epith Cells Hyaline Casts Urine Mucus Micro UA Comment Urine Culture Comments Urine Opiates Screen Ur Barbiturates Screen Ur Amphetamines Screen U Benzodiazepines Scrn Urine Cocaine Screen U Cannabinoids Screen Serum Alcohol Less than 3 12/11/17 12/11/17 20:20 20:20 WBC RBC Hgb Hct MCV MCH MCHC RDW Plt Count MPV Neut % (Auto) Lymph % (Auto) [place] % (Auto) Eos % (Auto) Baso % (Auto) Neut # (Auto) Lymph # (Auto) [place] # (Auto) Eos # (Auto) Baso # (Auto) WBC Differential Differential Comment Sodium Potassium Chloride Carbon Dioxide Anion Gap BUN Creatinine Estimated GFR Random Glucose Calcium Total Bilirubin AST ALT Alkaline Phosphatase Ammonia Troponin I Total Protein Albumin TSH Urine Color Yellow Urine Clarity Clear Urine pH 5.0 Ur Specific [place] 1.013 Urine Protein 100 H Urine Glucose (UA) Negative Urine Ketones Negative Urine Occult Blood Negative Urine Nitrate Negative Urine Bilirubin Negative Urine Urobilinogen 2.0 H Ur Leukocyte Esterase Negative Urine RBC 1 Urine WBC 2 Ur Squamous Epith Cells <1 Hyaline Casts 16 Urine Mucus Few H Micro UA Comment Cath-culture not ind Urine Culture Comments Cath-cult not ind Urine Opiates Screen Pos H Ur Barbiturates Screen Neg Ur Amphetamines Screen Neg U Benzodiazepines Scrn Neg Urine Cocaine Screen Neg U Cannabinoids Screen Neg Serum Alcohol - Imaging Impressions Abdomen/Bladder Ultrasound 12/11/17 00:00 CONCLUSION: 1. 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 2. 6.3 cm lower pole left renal cyst. 3. Overall no significant change from February 2016. Chest X-Ray 12/11/17 17:26 CONCLUSION: Mild cardiac enlargement. Minimal basilar or dependent atelectasis. Head CT 12/11/17 17:26 CONCLUSION: 1. No acute intracranial abnormality. . Assessment and Plan - Plan 72 y/o male with a history of HTN, anemia, bph, hypothyroid, depression, chronic pain and neuropathy was brought in to the ED with AMS. Acute metabolic encephalopathy Likely due to combination of medications and acute on chronic kidney injury. Head CT reviewed and shows no acute intracranial abnormality. -Neuro checks. -hold sedating meds. -PT/OT/ST. -check B12 level. -if does not improve with improvement in renal function would pursue further work-up with MRI of brain and EEG. Acute Kidney Injury Creatine 3.82. Kidney ultrasound shows a 6.3 cm lower pole renal cyst, no hydronephrosis. Nephrology consult appreciated. -IVF for hydration. -Trend creatine. -avoid nephrotoxins. -follow up with nephrology. Anemia S/t renal disease. -follow CBC. Unknown home meds The pt says his daughter will bring in his medication list. -Resume home medications when med rec is verified by family. DVT prophylaxis: Heparin
[2017-12-12 13:18] LABS: Baso % (Auto) 0.5 % (0.0-2.0); Eos # (Auto) 0.2 th/mm3 (0.0-0.4); Eos % (Auto) 3.6 % (0.0-4.0); Hematocrit 30.7 % (39.0-51.0); Lymph # (Auto) 1.6 th/mm3 (1.0-4.8); Lymph % (Auto) 26.5 % (9.0-44.0); Mean Corpuscular HGB Conc 32.5 % (32.0-36.0); Mean Corpuscular Hemoglobin 31.1 pg (27.0-34.0); Mean Corpuscular Volume 95.8 fL (80.0-100.0); Mean Platelet Volume 9.8 fL (7.0-11.0); Mono # (Auto) 0.4 th/mm3 (0.0-0.9); Mono % (Auto) 5.9 % (0.0-8.0); Neut # (Auto) 3.9 th/mm3 (1.8-7.7); Neut % (Auto) 63.5 % (16.0-70.0); Platelet Count 160 th/mm3 (150-450); Red Cell Distribution Width 15.1 % (11.6-17.2); White Blood Count 6.2 th/mm3 (4.0-11.0)
[2017-12-12 13:37] LABS: Calcium 8.5 mg/dL (8.5-10.1); Potassium 4.1 meq/L (3.5-5.1)
[2017-12-12 13:47] LABS: Thyroid Stimulating Hormone 0.749 uIU/mL (0.358-3.740)
[2017-12-12] MEDS: FLUoxetine 20 MG Capsule PO SCH ×2 (16:25→17:18)
[2017-12-12] MEDS: Levothyroxine 75 MCG Tablet PO SCH (16:25)
[2017-12-12] MEDS: Pantoprazole Sodium 20 MG DR Tablet PO SCH (20:54)
[2017-12-13] MEDS: Levothyroxine 75 MCG Tablet PO SCH (06:03)
[2017-12-13] MEDS: Heparin - SQ 10,000 UNITS/ML Vial SQ SCH ×3 (06:03→21:18)
[2017-12-13 06:48] LABS: Alanine Aminotransferase 17 U/L (12-78); Albumin 2.5 g/dL (3.4-5.0); Alkaline Phosphatase 91 U/L (45-117); Anion Gap 5 meq/L (5-15); Aspartate Aminotransferase 15 U/L (15-37); Blood Urea Nitrogen 39 mg/dL (7-18); Carbon Dioxide 27.6 meq/L (21.0-32.0); Chloride 113 meq/L (98-107); Glomerular Filtration Rate 47 mL/min (>89); Glucose,Random 94 mg/dL (74-106); Magnesium 1.7 mg/dL (1.5-2.5); Phosphorus 2.5 mg/dL (2.5-4.9); Potassium 4.3 meq/L (3.5-5.1); Sodium 146 meq/L (136-145); Total Protein 6.2 g/dL (6.4-8.2)
[2017-12-13] MEDS: Pantoprazole Sodium 20 MG DR Tablet PO SCH ×2 (08:07→20:57)
[2017-12-13] MEDS: Senna/Docusate Sodium 8.6/50 MG Tablet PO SCH ×2 (08:07→20:57)
[2017-12-13] MEDS: FLUoxetine 20 MG Capsule PO SCH ×3 (08:07→17:58)
[2017-12-13] MEDS: Sod Chloride 0.9% Inj 1,000 ML IV.CONT SCH (08:08)
[2017-12-13] MEDS: dilTIAZem CD 180 MG Capsule PO SCH (08:08)
[2017-12-13] MEDS: Sodium Chloride 0.45 % Inj 1,000 ML IV.CONT SCH ×2 (10:45→18:22)
--- NOTE | 2017-12-13 10:53 | P.PNNP ---
Subjective Interval history: Resting comfortably. Creatinine has improved to 1.74 from 2.40 today. No complaints. IVF are infusing. <Helen Schumacher - Last Filed: 12/13/17 10:38> Physical Exam Vital signs: Vital Signs 12/12/17 12:00 12/12/17 16:00 12/12/17 20:00 Temperature 97.2 F L 98.3 F 98.7 F Pulse Rate 65 64 72 Respiratory Rate 19 16 18 Blood Pressure 175/78 H 156/70 H 158/69 H Pulse Oximetry 97 98 97 12/13/17 00:00 12/13/17 04:00 12/13/17 04:58 Temperature 98.4 F 98.1 F 98.0 F Pulse Rate 75 88 71 Respiratory Rate 18 18 18 Blood Pressure 167/75 H 193/88 H 163/74 H Pulse Oximetry 98 98 97 12/13/17 06:26 12/13/17 08:00 Temperature 97.9 F Pulse Rate 79 73 Respiratory Rate 17 Blood Pressure 179/77 H Pulse Oximetry 97 Intake & Output 12/12/17 12/13/17 12/13/17 18:59 06:59 18:59 Intake Total 2775 / 2775 1000 / 1000 Output Total 1300 / 1300 1999 / 1999 Balance 1475 / 1475 -1000 / -1000 Intake: IV 1999 1000 / 1000 NS Inj 1,000 ML @ 125 mls/hr IV 1999 1000 / 1000 .CONT .Q8H [facility] Rx#:[id number] Oral 775 / 775 Output: Urine 1300 / 1300 1999 Other: # Bowel Movements 0 - Constitutional no acute distress - Routine HEENT Exam Head: Present: normocephalic ENT: Present: mucous membranes moist - Routine Neck Exam Present: supple. Absent: JVD - Routine Respiratory Exam Present: decreased breath sounds. Absent: respiratory distress, rhonchi, wheezes - Routine Cardiovascular Exam Present: RRR - Routine Abdominal Exam Present: soft, normoactive bowel sounds - Routine Extremities Exam Absent: edema - Routine Skin Exam Present: intact, warm - Routine Neurological Exam Present: alert, oriented X3 - Routine Psychiatric Exam Present: cooperative - Urinary Catheter Management Indwelling Urethral Catheter Cath placed during this visit: yes Reason for continuing: Chronic Urinary Retention Insertion date: 12/11/17 Insertion time: 20:20 <Helen Schumacher - Last Filed: 12/13/17 10:38> Vital signs: Vital Signs 12/12/17 20:00 12/13/17 00:00 12/13/17 04:00 Temperature 98.7 F 98.4 F 98.1 F Pulse Rate 72 75 88 Respiratory Rate 18 18 18 Blood Pressure 158/69 H 167/75 H 193/88 H Pulse Oximetry 97 98 98 12/13/17 04:58 12/13/17 06:26 12/13/17 08:00 Temperature 98.0 F 97.9 F Pulse Rate 71 79 73 Respiratory Rate 18 17 Blood Pressure 163/74 H 179/77 H Pulse Oximetry 97 97 12/13/17 10:50 12/13/17 11:36 12/13/17 12:00 Temperature 97.8 F Pulse Rate 60 Respiratory Rate 20 18 Blood Pressure 160/92 H 185/81 H Pulse Oximetry 98 12/13/17 15:59 12/13/17 17:57 Temperature 98.2 F Pulse Rate 60 Respiratory Rate 18 18 Blood Pressure 173/79 H Pulse Oximetry 98 Intake & Output 12/13/17 12/13/17 12/14/17 06:59 18:59 06:59 Intake Total 1000 / 1000 1760 / 1760 Output Total 1999 1700 / 1700 Balance -1000 / -1000 60 / 60 Intake: IV 1000 / 1000 1000 / 1000 NS Inj 1,000 ML @ 125 mls/hr IV 1000 / 1000 .CONT .Q8H [facility] Rx#:[id number] 1/2 Normal Saline Inj 1,000 ML 1000 / 1000 @ 100 mls/hr IV.CONT .Q10H [facility] Rx#:[id number] Oral 760 / 760 Output: Urine 1999 1700 / 1700 Other: Date of Last Bowel Movement 12/13/17 # Bowel Movements 2 - Urinary Catheter Management Indwelling Urethral Catheter Cath placed during this visit: no <Esther Dietz - Last Filed: 12/13/17 19:09> Assessment and Plan - Assessment (1) Acute kidney injury Code(s): N17.9 - Acute kidney failure, unspecified Status: Acute Plan: Acute kidney injury with possibility of chronic kidney disease. TOBIN most likely prerenal from dehydration Possibly has chronic kidney disease because of hypertensive or renovascular disease Ultrasound with right kidney not visualized, reportedly congenitally atrophic, 6.3 cm lower pole left renal cyst Received IVF and creatinine has improved from 2.40 to 1.74, can discontinue IVF and oral encouraged. VIRGINIE, ANCA pending. SPEP pending Avoid any nephrotoxins. Follow the urine output and the BUN and creatinine. \ <Helen Schumacher - Last Filed: 12/13/17 10:38> - Assessment (1) Acute kidney injury Code(s): N17.9 - Acute kidney failure, unspecified Status: Acute - Attending Attestation Patient seen and examine, agree with above. Creatinine is improving, has an element of TOBIN, possibly pre renal. <Esther Dietz - Last Filed: 12/13/17 19:09>
--- NOTE | 2017-12-13 11:11 | P.PNIM ---
Subjective Interval history: The patient stated that he lost his about 3 months ago. He has been having a hard time. He says he does see a psychiatrist. He feels like his speech is getting better. He does complain of some right shoulder pain. He has right lower extremity pain but he states that has been bothering him for quite some time now. He denies any numbness or tingling. Physical Exam Vital signs: Vital Signs 12/12/17 12:00 12/12/17 16:00 12/12/17 20:00 Temperature 97.2 F L 98.3 F 98.7 F Pulse Rate 65 64 72 Respiratory Rate 19 16 18 Blood Pressure 175/78 H 156/70 H 158/69 H Pulse Oximetry 97 98 97 12/13/17 00:00 12/13/17 04:00 12/13/17 04:58 Temperature 98.4 F 98.1 F 98.0 F Pulse Rate 75 88 71 Respiratory Rate 18 18 18 Blood Pressure 167/75 H 193/88 H 163/74 H Pulse Oximetry 98 98 97 12/13/17 06:26 12/13/17 08:00 12/13/17 10:50 Temperature 97.9 F Pulse Rate 79 73 Respiratory Rate 17 Blood Pressure 179/77 H 160/92 H Pulse Oximetry 97 Intake & Output 12/12/17 12/13/17 12/13/17 18:59 06:59 18:59 Intake Total 2775 / 2775 1000 / 1000 Output Total 1300 / 1300 1999 Balance 1475 / 1475 -1000 / -1000 Intake: IV 1999 1000 / 1000 NS Inj 1,000 ML @ 125 mls/hr IV 1999 1000 / 1000 .CONT .Q8H [facility] Rx#:[id number] Oral 775 / 775 Output: Urine 1300 / 1300 1999 Other: # Bowel Movements 0 Narrative: GENERAL: This is a well-nourished, obese patient, in no apparent distress. CARDIOVASCULAR: Regular rate and rhythm without murmurs, gallops, or rubs. RESPIRATORY: Clear to auscultation. Breath sounds equal bilaterally. No wheezes , rales, or rhonchi. GASTROINTESTINAL: Abdomen soft, non-tender, nondistended. Normal active bowel sounds MUSCULOSKELETAL: Extremities without clubbing, cyanosis. RUE with limited ROM s/ t shoulder pain. Dependant edema noted. NEURO: A&O x3. Moves all ext x4. - Urinary Catheter Management Indwelling Urethral Catheter Cath placed during this visit: yes Reason for continuing: Chronic Urinary Retention Insertion date: 12/11/17 Insertion time: 20:20 Results - Labs CBC & Chem 7: 12/12/17 12:05 12/13/17 05:12 Laboratory Results - last 24 hr 12/12/17 12/12/17 12/12/17 12:05 12:05 12:05 WBC 6.2 RBC 3.20 L Hgb 10.0 L Hct 30.7 L MCV 95.8 MCH 31.1 MCHC 32.5 RDW 15.1 Plt Count 160 MPV 9.8 Neut % (Auto) 63.5 Lymph % (Auto) 26.5 [place] % (Auto) 5.9 Eos % (Auto) 3.6 Baso % (Auto) 0.5 Neut # (Auto) 3.9 Lymph # (Auto) 1.6 [place] # (Auto) 0.4 Eos # (Auto) 0.2 Baso # (Auto) 0.0 WBC Differential . Differential Comment Auto diff final Sodium 141 Potassium 4.1 Chloride 107 Carbon Dioxide 26.0 Anion Gap 8 BUN 43 H Creatinine 2.40 H Estimated GFR 33 L Random Glucose 122 H Calcium 8.5 Phosphorus Magnesium Total Bilirubin Direct Bilirubin Indirect Bilirubin AST ALT Alkaline Phosphatase Total Protein Total Protein (PEP) Albumin Vitamin B12 801 TSH 0.749 12/13/17 05:12 WBC RBC Hgb Hct MCV MCH MCHC RDW Plt Count MPV Neut % (Auto) Lymph % (Auto) [place] % (Auto) Eos % (Auto) Baso % (Auto) Neut # (Auto) Lymph # (Auto) [place] # (Auto) Eos # (Auto) Baso # (Auto) WBC Differential Differential Comment Sodium 146 H Potassium 4.3 Chloride 113 H Carbon Dioxide 27.6 Anion Gap 5 BUN 39 H Creatinine 1.74 H Estimated GFR 47 L Random Glucose 94 Calcium 8.0 L Phosphorus 2.5 Magnesium 1.7 Total Bilirubin 0.1 L Direct Bilirubin Less than 0.1 Indirect Bilirubin 0.0 AST 15 ALT 17 Alkaline Phosphatase 91 Total Protein 6.2 L D Total Protein (PEP) 6.2 L Albumin 2.5 L D Vitamin B12 TSH Assessment and Plan - Plan 72 y/o male with a history of HTN, anemia, bph, hypothyroid, depression, chronic pain and neuropathy was brought in to the ED with AMS. Acute metabolic encephalopathy Likely due to combination of medications and acute on chronic kidney injury. Head CT reviewed and shows no acute intracranial abnormality. B12 level normal. Improving. -Neuro checks. -hold sedating meds. -PT/OT/ST. Acute Kidney Injury Creatine 3.82. Kidney ultrasound shows a 6.3 cm lower pole renal cyst, no hydronephrosis. Nephrology consult appreciated. Creatinine improving with hydration. -IVF for hydration. -Trend creatine. -avoid nephrotoxins. -follow up with nephrology. Anemia S/t renal disease. -follow CBC. HTN The pt was on multiple diuretics which have likely contributed to renal deterioration. -hold diuretics and ACEi. Will resume ACEi when creatinine stabilizes. -hold terazosin as can contribute to [employer] depression. -continue Cardizem. -add hydralazine. -clonidine as needed. DVT prophylaxis: Heparin
[2017-12-13] MEDS: hydrALAZINE 10 MG Tablet PO SCH ×2 (12:31→17:59)
--- NOTE | 2017-12-13 14:39 | P.DCO ---
- Physical Therapy Order: Evaluate and treat, Improve ambulation, Strength and gait training - Occupational Therapy Order: Evaluate and treat, Improve ADL, Gross motor coordination, Fine motor coordination - Home Health Nursing Order: Medical education, Signs/symptoms of disease process, Medication education-adverse effect, Nursing assessment with vital signs - Certification I have seen patient Jani Durham on 12/13/17. My clinical findings support the need for the requested home health care services because: Deconditioned with increased weakness, Medication compliance is questionable, Need for psychosocial assistance I certify that my clinical findings support that this patient is homebound because: Unsteady gait/balance, Unsafe to leave home unassisted, Need for psychosocial assistance
[2017-12-14] MEDS: Sodium Chloride 0.45 % Inj 1,000 ML IV.CONT SCH ×2 (04:18→17:08)
[2017-12-14] MEDS: Levothyroxine 75 MCG Tablet PO SCH (05:47)
[2017-12-14 06:30] LABS: Calcium 8.1 mg/dL (8.5-10.1); Carbon Dioxide 29.5 meq/L (21.0-32.0); Potassium 4.3 meq/L (3.5-5.1)
[2017-12-14] MEDS: dilTIAZem CD 180 MG Capsule PO SCH (08:06)
[2017-12-14] MEDS: FLUoxetine 20 MG Capsule PO SCH ×3 (08:07→17:08)
[2017-12-14] MEDS: Pantoprazole Sodium 20 MG DR Tablet PO SCH ×2 (08:07→21:18)
[2017-12-14] MEDS: hydrALAZINE 10 MG Tablet PO SCH ×3 (08:08→17:07)
[2017-12-14] MEDS: Heparin - SQ 10,000 UNITS/ML Vial SQ SCH ×3 (08:08→21:18)
[2017-12-14] MEDS: Senna/Docusate Sodium 8.6/50 MG Tablet PO SCH ×2 (08:15→21:18)
--- NOTE | 2017-12-14 12:36 | P.PNNP ---
Subjective Interval history: Patient doing well with no complaints. Denies any shortness of breath. Creatinine is stable at 1.37 <Helen Schumacher - Last Filed: 12/14/17 12:30> Physical Exam Vital signs: Vital Signs 12/13/17 15:59 12/13/17 17:57 12/13/17 20:00 Temperature 98.2 F 98.4 F Pulse Rate 60 64 Respiratory Rate 18 18 18 Blood Pressure 173/79 H 164/80 H Pulse Oximetry 98 100 12/14/17 00:00 12/14/17 04:00 12/14/17 08:00 Temperature 98.6 F 98.6 F 97.9 F Pulse Rate 68 68 67 Respiratory Rate 18 Blood Pressure 184/78 H 173/82 H 183/84 H Pulse Oximetry 100 100 99 12/14/17 08:07 Temperature Pulse Rate Respiratory Rate 20 Blood Pressure Pulse Oximetry Intake & Output 12/13/17 12/14/17 12/14/17 18:59 06:59 18:59 Intake Total 1760 / 1760 1480 / 1480 Output Total 1700 / 1700 1800 / 1800 Balance 60 / 60 -320 / -320 Intake: IV 1000 / 1000 1000 / 1000 1/2 Normal Saline Inj 1,000 ML 1000 / 1000 1000 / 1000 @ 100 mls/hr IV.CONT .Q10H [facility] Rx#:[id number] Oral 760 / 760 480 / 480 Output: Urine 1700 / 1700 Urine Amount (Catheter) 1800 / 1800 Indwelling Urethral Catheter 1800 / 1800 Other: Date of Last Bowel Movement 12/13/17 # Bowel Movements 2 Narrative: GENERAL: This is a well-nourished, obese patient, in no apparent distress. CARDIOVASCULAR: Regular rate and rhythm without murmurs, gallops, or rubs. RESPIRATORY: Clear to auscultation. Breath sounds equal bilaterally. No wheezes , rales, or rhonchi. GASTROINTESTINAL: Abdomen soft, non-tender, nondistended. Normal active bowel sounds MUSCULOSKELETAL: Extremities without clubbing, cyanosis. NEURO: A&O x3. Moves all ext x4. - Urinary Catheter Management Indwelling Urethral Catheter Cath placed during this visit: yes Reason for continuing: Acute urinary retention Insertion date: 12/11/17 Insertion time: 20:20 <Helen Schumacher - Last Filed: 12/14/17 12:30> Vital signs: Vital Signs 12/15/17 00:00 12/15/17 04:00 12/15/17 05:00 Temperature 97.7 F 99.1 F Pulse Rate 72 69 64 Respiratory Rate 19 19 Blood Pressure 169/77 H 191/81 H 171/79 H Pulse Oximetry 99 99 12/15/17 08:00 12/15/17 12:00 12/15/17 16:00 Temperature 98.8 F 98.6 F 97.8 F Pulse Rate 67 58 L 64 Respiratory Rate 17 17 18 Blood Pressure 179/80 H 159/69 H 159/71 H Pulse Oximetry 100 99 100 12/15/17 20:00 Temperature 97.5 F L Pulse Rate 72 Respiratory Rate 18 Blood Pressure 128/77 Pulse Oximetry 100 Intake & Output 12/15/17 12/15/17 12/16/17 06:59 18:59 06:59 Intake Total 1480 / 1480 1100 / 1100 Output Total 900 / 900 Balance 580 / 580 1100 / 1100 Intake: IV 1000 / 1000 1/2 Normal Saline Inj 1,000 ML 1000 / 1000 @ 100 mls/hr IV.CONT .Q10H [facility] Rx#:[id number] Oral 480 / 480 1100 / 1100 Output: Urine 900 / 900 Other: # Voids 10 Date of Last Bowel Movement 12/13/17 # Bowel Movements 1 - Urinary Catheter Management Indwelling Urethral Catheter Cath placed during this visit: no <Esther Dietz - Last Filed: 12/15/17 23:40> Assessment and Plan - Assessment (1) Acute kidney injury Code(s): N17.9 - Acute kidney failure, unspecified Status: Acute Plan: Acute kidney injury with possibility of chronic kidney disease. TOBIN most likely prerenal from dehydration Possibly has chronic kidney disease because of hypertensive or renovascular disease Ultrasound with right kidney not visualized, reportedly congenitally atrophic, 6.3 cm lower pole left renal cyst Creatinine is improving at 1.37 with good urinary output On IVF, if taking PO well can discontinue IVF's VIRGINIE, ANCA pending. SPEP pending Avoid any nephrotoxins. Follow the urine output and the BUN and creatinine. Discussed with family. \ <Helen Schumacher - Last Filed: 12/14/17 12:30> - Assessment (1) Acute kidney injury Code(s): N17.9 - Acute kidney failure, unspecified Status: Resolved - Attending Attestation Patient seen and examined, agree with above. Creatinine continue to improve. Most likely has an element of pre renal disease. <Esther Dietz - Last Filed: 12/15/17 23:40>
--- NOTE | 2017-12-14 13:48 | P.PNIM ---
Subjective Interval history: The patient was very uncomfortable from the Mata catheter. He stated that it felt like he had to urinate but he was unable to go and he had a lot of pressure. He wants to go home. His family was at the bedside and was concerned about him. They mention that he was being followed as an outpatient by Dr. Denis of neurology. Discussed with nursing. Physical Exam Vital signs: Vital Signs 12/13/17 15:59 12/13/17 17:57 12/13/17 20:00 Temperature 98.2 F 98.4 F Pulse Rate 60 64 Respiratory Rate 18 Blood Pressure 173/79 H 164/80 H Pulse Oximetry 98 100 12/14/17 00:00 12/14/17 04:00 12/14/17 08:00 Temperature 98.6 F 98.6 F 97.9 F Pulse Rate 68 68 67 Respiratory Rate 18 18 18 Blood Pressure 184/78 H 173/82 H 183/84 H Pulse Oximetry 100 100 99 12/14/17 08:07 12/14/17 12:00 12/14/17 12:45 Temperature 98.0 F Pulse Rate 60 Respiratory Rate 20 18 20 Blood Pressure 181/86 H Pulse Oximetry 99 Intake & Output 12/13/17 12/14/17 12/14/17 18:59 06:59 18:59 Intake Total 1760 / 1760 1480 / 1480 Output Total 1700 / 1700 1800 / 1800 Balance 60 / 60 -320 / -320 Intake: IV 1000 / 1000 1000 / 1000 1/2 Normal Saline Inj 1,000 ML 1000 / 1000 1000 / 1000 @ 100 mls/hr IV.CONT .Q10H [facility] Rx#:[id number] Oral 760 / 760 480 / 480 Output: Urine 1700 / 1700 Urine Amount (Catheter) 1800 / 1800 Indwelling Urethral Catheter 1800 / 1800 Other: Date of Last Bowel Movement 12/13/17 # Bowel Movements 2 Narrative: GENERAL: This is a well-nourished, obese patient, appears uncomfortable from the Mata. CARDIOVASCULAR: Regular rate and rhythm without murmurs, gallops, or rubs. RESPIRATORY: Clear to auscultation. Breath sounds equal bilaterally. No wheezes , rales, or rhonchi. GASTROINTESTINAL: Abdomen soft, non-tender, nondistended. Normal active bowel sounds MUSCULOSKELETAL: Extremities without clubbing, cyanosis. NEURO: A&O x3. Moves all ext x4. - Urinary Catheter Management Indwelling Urethral Catheter Cath placed during this visit: yes Reason for continuing: Acute urinary retention Insertion date: 12/11/17 Insertion time: 20:20 Results - Labs CBC & Chem 7: 12/12/17 12:05 12/14/17 03:53 Laboratory Results - last 24 hr 12/13/17 12/14/17 05:12 03:53 Sodium 145 Potassium 4.3 Chloride 111 H Carbon Dioxide 29.5 Anion Gap 5 BUN 27 H Creatinine 1.37 H Estimated GFR 62 L Random Glucose 84 Calcium 8.1 L VIRGINIE Screen Neg Assessment and Plan - Assessment (1) Acute alteration in mental status Code(s): R41.82 - Altered mental status, unspecified Status: Acute (2) Acute kidney injury Code(s): N17.9 - Acute kidney failure, unspecified Status: Acute - Plan 72 y/o male with a history of HTN, anemia, bph, hypothyroid, depression, chronic pain and neuropathy was brought in to the ED with AMS. Acute metabolic encephalopathy Likely due to combination of medications and acute on chronic kidney injury. Head CT reviewed and shows no acute intracranial abnormality. B12 level normal. Improving. Follows with Dr. Denis as an outpt for peripheral neuropathy. -Neuro checks. -hold sedating meds. -PT/OT/ST. -neurology consult pending. Acute Kidney Injury Creatine 3.82. Kidney ultrasound shows a 6.3 cm lower pole renal cyst, no hydronephrosis. Nephrology consult appreciated. Creatinine improving with hydration. -IVF for hydration. -Trend creatine. -avoid nephrotoxins. -follow up with nephrology. -d/c Mata. Anemia S/t renal disease. -follow CBC. HTN The pt was on multiple diuretics which have likely contributed to renal deterioration. -hold diuretics. -hold terazosin as can contribute to [employer] depression. -continue Cardizem. -added hydralazine. -resume enalapril as creatinine is improving. -clonidine as needed. DVT prophylaxis: Heparin Discharge Planning: Family concerned about the patient going home. Neurology consultation has been requested. Will likely need C vs. SNF.
--- NOTE | 2017-12-14 15:16 | MB ---
cc: Siria Harris MD DATE: 12/14/2017 DATE OF : 1945 AGE: [age] years old. REASON FOR CONSULTATION: Metabolic encephalopathies. HISTORY OF PRESENT ILLNESS: This is a pleasant 72-year-old man, a patient of my partner in the office, Dr. Denis, with a history of hypertension, anemia, BPH, hypothyroidism, depression, chronic pain, neuropathy. He was in his usual state of health, had taken a dose of 75 mg of Lyrica the night before admission and then in the morning another dose, went to the [facility] and started becoming confused, tremulous. It sounds like he had myoclonus was brought into the ER and found to have abnormalities of his electrolytes. His creatinine was elevated at 3.82 . He was seen by Nephrology, had a CT of the head that was unremarkable. The patient seems to be back at baseline. He no longer has any tremors, not confused, knows where he is at. He states he feels back to baseline. His family member confirms that. PAST MEDICAL HISTORY: As stated. ALLERGIES TO MEDICINES: Numerous. Please refer to his EMR. HOME MEDICINES: Please refer to his EMR. PHYSICAL EXAMINATION: VITAL SIGNS: His temperature is 98, heart rate 60, respiratory rate 20, blood pressure 181/86, 99% on room air on pulse oximetry. NEUROLOGICAL EXAMINATION: He is awake, alert. He is oriented and fluent. Pupils are reactive. Face is symmetrical. Tongue is midline. Tone motor-hendrix is intact. There is no cogwheeling. There is no spasticity, no tremors. Strength is intact on [id number]. No past pointing. DTRs are difficult to elicit throughout. Sensory intact. Gait: Normally walks without a walker, but he has been walking around the room and the johnson with a walker without any difficulty. LABORATORY DATA: Reviewed. His hemoglobin is 10, platelets 160,000. Chemistries: He came in with a GFR of 19, currently it is up 62 . His creatinine is now 1.37 from 3.82. Tox screen was positive for opiates. Immunology is pending. IMAGING STUDIES: CT head: No acute findings. IMPRESSION: Change in mental status and tremors, may certainly have been due to the metabolic encephalopathy, his renal findings. At this point in time, he seems to be back to baseline. RECOMMENDATIONS: Recommend just getting a baseline EEG. We will get some routine labs, ammonia, folate, thiamine, B12. If any abnormalities, further recommendations will be made accordingly. Continue current care. Have him follow up as an outpatient with Dr. Denis. MD JOHN Delvalle/LULY , 02:57 PM , 03:06 PM
[2017-12-15] MEDS: Sodium Chloride 0.45 % Inj 1,000 ML IV.CONT SCH ×2 (03:31→07:20)
[2017-12-15] MEDS: Heparin - SQ 10,000 UNITS/ML Vial SQ SCH ×3 (05:01→21:09)
[2017-12-15] MEDS: Levothyroxine 75 MCG Tablet PO SCH (05:01)
[2017-12-15 06:45] LABS: Calcium 8.5 mg/dL (8.5-10.1); Carbon Dioxide 27.3 meq/L (21.0-32.0); Magnesium 1.3 mg/dL (1.5-2.5); Potassium 4.2 meq/L (3.5-5.1)
[2017-12-15] MEDS: hydrALAZINE 10 MG Tablet PO SCH (09:36)
[2017-12-15] MEDS: Pantoprazole Sodium 20 MG DR Tablet PO SCH ×2 (09:36→21:09)
[2017-12-15] MEDS: Senna/Docusate Sodium 8.6/50 MG Tablet PO SCH ×2 (09:36→21:09)
[2017-12-15] MEDS: dilTIAZem CD 180 MG Capsule PO SCH (09:39)
--- NOTE | 2017-12-15 10:47 | P.PN ---
Subjective Interval history: Pt seen and examined for f/u TOBIN, AMS, and elevated BP. BPs continue to be significant elevated, up to 191/81 overnight. Pt reports his only complain is "pain all over." He states this is chronic and has been diagnosed with OA and fibromyalgia. He feels like his mentation is intact and he is thinking clearly. Denies CP, SOB, dizziness, or tremors. Also d/w with daughter on the phone who is very concerned for patient's recent decline and safety at home. Physical Exam Vital signs: Vital Signs 12/14/17 12:00 12/14/17 12:45 12/14/17 16:00 Temperature 98.0 F 98.6 F Pulse Rate 60 67 Respiratory Rate 18 20 18 Blood Pressure 181/86 H 186/86 H Pulse Oximetry 99 100 12/14/17 18:19 12/14/17 19:56 12/14/17 20:00 Temperature 98.9 F Pulse Rate 72 97 H Respiratory Rate 18 19 Blood Pressure 181/87 H Pulse Oximetry 95 12/15/17 00:00 12/15/17 04:00 12/15/17 05:00 Temperature 97.7 F 99.1 F Pulse Rate 72 69 64 Respiratory Rate 19 19 Blood Pressure 169/77 H 191/81 H 171/79 H Pulse Oximetry 99 99 12/15/17 08:00 Temperature 98.8 F Pulse Rate 67 Respiratory Rate 17 Blood Pressure 179/80 H Pulse Oximetry 100 Intake & Output 12/14/17 12/15/17 12/15/17 18:59 06:59 18:59 Intake Total 1800 / 1800 1480 / 1480 Output Total 1300 / 1300 900 / 900 Balance 500 / 500 580 / 580 Intake: IV 1000 / 1000 1000 / 1000 1/2 Normal Saline Inj 1,000 ML 1000 / 1000 1000 / 1000 @ 100 mls/hr IV.CONT .Q10H [facility] Rx#:[id number] Oral 800 / 800 480 / 480 Output: Urine 1300 / 1300 900 / 900 Other: # Bowel Movements 1 Narrative: GENERAL: WN, WD AA male resting in bed in NAD. SKIN: Warm and dry. HEENT: AT/NC. Pupils equal and round. MMM. HEART: RRR no m/r/g. LUNGS: CTAB without wheezes or crackles. ABDOMEN: +BS, soft, NT, ND. EXTREMITIES: No LE edema. NEURO: Awake and alert. Oriented to person, place, time. PSYCH: Appropriate mood and affect. - Urinary Catheter Management Indwelling Urethral Catheter Cath placed during this visit: yes Reason for continuing: Acute urinary retention Insertion date: 12/11/17 Insertion time: 20:20 Results - Labs CBC & Chem 7: 12/12/17 12:05 12/15/17 04:50 Laboratory Results - last 24 hr 12/13/17 12/13/17 12/13/17 05:12 05:12 05:12 Sodium Potassium Chloride Carbon Dioxide Anion Gap BUN Creatinine Estimated GFR Random Glucose Calcium Magnesium Ammonia Albumin (PEP) 3.14 L Albumin/Globulin Ratio 1.02 L Fwvjh-7-Wgxeajybz 0.19 Gfffn-5-Xufwsmjaz 0.82 Beta Globulins 0.68 Gamma Globulins 1.37 Folate VIRGINIE Screen Neg Anti-Proteinase 3 Less than 1.0 Anti-Myeloperoxidase Less than 1.0 12/14/17 12/14/17 12/15/17 17:05 17:05 04:50 Sodium 144 Potassium 4.2 Chloride 109 H Carbon Dioxide 27.3 Anion Gap 8 BUN 18 Creatinine 1.23 Estimated GFR 70 L Random Glucose 86 Calcium 8.5 Magnesium 1.3 L Ammonia Less than 10 L Albumin (PEP) Albumin/Globulin Ratio Npijb-1-Iarjagaco Uotpp-9-Ntftytgqp Beta Globulins Gamma Globulins Folate 16.8 VIRGINIE Screen Anti-Proteinase 3 Anti-Myeloperoxidase Assessment and Plan - Assessment (1) Acute alteration in mental status Code(s): R41.82 - Altered mental status, unspecified Status: Acute (2) Acute kidney injury Code(s): N17.9 - Acute kidney failure, unspecified Status: Resolved - Plan 72 year old male with a history of HTN, anemia, hypothyroidism, depression, and neuropathy admitted on 12/11 for AMS. 1. Acute metabolic encephalopathy - Likely due to combination of medications and acute on chronic kidney injury - Head CT reviewed and shows no acute intracranial abnormality - B12, ammonia, TSH WNL - Neuro consulted since patient follows with Dr. Denis as outpatient - Checking baseline EEG - Hold sedating medications - PT recommending HHC 2. Acute Kidney Injury - Creatine 3.82 on admission, down to 1.23 this AM - Renal ultrasound shows a 6.3 cm lower pole renal cyst, no hydronephrosis - Nephrology consult appreciated - Creatinine improving with hydration - Good UOP - VIRGINIE negative, SPEP negative - Avoid nephrotoxic agents and renally dose medications - Monitor renal function and I/Os 3. Anemia - Hemodynamically stable - Monitor 4. HTN - BPs significantly elevated - Diuretics held secondary to TOBIN - Increase hydralazine to 50 mg PO TID - Continue Cardizem and enalapril - Clonidine PRN - Continue to monitor closely 5. Fibromyalgia - Continue Prozac DVT prophylaxis: Heparin Discussed Condition With: The patient and his daughter Discharge Planning: Pending EEG results as well as better control of BP. Hopefully in next day or so
[2017-12-15] MEDS: FLUoxetine 20 MG Capsule PO SCH ×3 (12:43→18:12)
[2017-12-15] MEDS: hydrALAZINE 50 MG Tablet PO SCH ×2 (12:46→18:12)
--- NOTE | 2017-12-15 17:49 | MG ---
cc: Siria Harris MD EEG NUMBER: [id number] Room 1706. Photic stimulation done. Awake, drowsy, asleep. REASON FOR STUDY: Possible encephalopathy, myoclonus found to have elevated renal parameters, now back to baseline. DESCRIPTION OF RECORD: EEG shows 8 Hz, 20-40 microvolts, fairly symmetrical background, may be a sinus arrhythmia on his EKG and some PVCs. Overall, symmetrical background, normal alpha rhythm. Some minor movement artifact. No hyperventilation done. Towards the end, photic stimulation shows a posterior driving response that was completed. IMPRESSION: Normal appearing electroencephalogram. There may be some type of dysrhythmia. Whether truly sinus arrhythmia versus other to be determined with a 12-lead but otherwise no epileptiform features on his electroencephalogram. Clinical correlation. MD JOHN Delvalle/MAYTE , 05:30 PM , 05:35 PM
--- NOTE | 2017-12-15 23:42 | P.PNNP ---
Subjective Interval history: Patient is alert, no SOB, not eating well, no nausea. Physical Exam Vital signs: Vital Signs 12/15/17 00:00 12/15/17 04:00 12/15/17 05:00 Temperature 97.7 F 99.1 F Pulse Rate 72 69 64 Respiratory Rate 19 19 Blood Pressure 169/77 H 191/81 H 171/79 H Pulse Oximetry 99 99 12/15/17 08:00 12/15/17 12:00 12/15/17 16:00 Temperature 98.8 F 98.6 F 97.8 F Pulse Rate 67 58 L 64 Respiratory Rate 17 17 18 Blood Pressure 179/80 H 159/69 H 159/71 H Pulse Oximetry 100 99 100 12/15/17 20:00 Temperature 97.5 F L Pulse Rate 72 Respiratory Rate 18 Blood Pressure 128/77 Pulse Oximetry 100 Intake & Output 12/15/17 12/15/17 12/16/17 06:59 18:59 06:59 Intake Total 1480 / 1480 1100 / 1100 Output Total 900 / 900 Balance 580 / 580 1100 / 1100 Intake: IV 1000 / 1000 1/2 Normal Saline Inj 1,000 ML 1000 / 1000 @ 100 mls/hr IV.CONT .Q10H [facility] Rx#:[id number] Oral 480 / 480 1100 / 1100 Output: Urine 900 / 900 Other: # Voids 10 Date of Last Bowel Movement 12/13/17 # Bowel Movements 1 Narrative: GENERAL: WN, WD AA male resting in bed in NAD. SKIN: Warm and dry. HEENT: AT/NC. Pupils equal and round. MMM. HEART: RRR no m/r/g. LUNGS: CTAB without wheezes or crackles. ABDOMEN: +BS, soft, NT, ND. EXTREMITIES: No LE edema. NEURO: Awake and alert. Oriented to person, place, time. PSYCH: Appropriate mood and affect. - Urinary Catheter Management Indwelling Urethral Catheter Cath placed during this visit: yes Reason for continuing: Acute urinary retention Insertion date: 12/11/17 Insertion time: 20:20 Assessment and Plan - Assessment (1) Acute kidney injury Code(s): N17.9 - Acute kidney failure, unspecified Status: Resolved Plan: Acute kidney injury with possibility of chronic kidney disease. TOBIN most likely prerenal from dehydration Possibly has chronic kidney disease because of hypertensive or renovascular disease Ultrasound with right kidney not visualized, reportedly congenitally atrophic, 6.3 cm lower pole left renal cyst Creatinine is improving at 1.37 with good urinary output On IVF, if taking PO well can discontinue IVF's VIRGINIE, ANCA pending. SPEP pending Avoid any nephrotoxins. Follow the urine output and the BUN and creatinine. Discussed with family. Creatinine continue to improve. Continue IVF.
[2017-12-16] MEDS: Heparin - SQ 10,000 UNITS/ML Vial SQ SCH (05:56)
[2017-12-16] MEDS: Levothyroxine 75 MCG Tablet PO SCH (05:56)
[2017-12-16] MEDS: hydrALAZINE 50 MG Tablet PO SCH (09:52)
[2017-12-16] MEDS: dilTIAZem CD 180 MG Capsule PO SCH (09:52)
[2017-12-16] MEDS: Senna/Docusate Sodium 8.6/50 MG Tablet PO SCH (09:53)
[2017-12-16] MEDS: FLUoxetine 20 MG Capsule PO SCH (09:54)
[2017-12-16] MEDS: Pantoprazole Sodium 20 MG DR Tablet PO SCH (09:54)
--- NOTE | 2017-12-16 11:22 | P.DS ---
Date of admission: 12/11/17 18:55 Primary care physician: Kanwal Parsons MD Attending physician on discharge: Alice Kuhn Anticipated date of discharge: 12/16/17 Brief History from admission: 72 y/o male with a history of HTN, anemia, bph, hypothyroid, depression, chronic pain and neuropathy was brought in to the ED with AMS. According to the ER physician patient drove to the [facility] today and was told he was acting confused so the family brought him in. Upon examination patient appears sleepy but is oriented x 4. He states he took his medications today as directed but last night was his first dose of Lyrica. He denies any chest pain, sob, dysuria, fever or chills. DS: Diagnosis - Discharge Diagnosis (1) Acute alteration in mental status Status: Acute (2) Acute kidney injury Status: Resolved DS: Medications - Discharge Medications Prescriptions: amlodipine 5 mg PO DAILY #30 tab hydralazine 100 mg PO TID #90 tab DS: Summary Hospital Course: 72 year old male with a history of HTN, anemia, hypothyroidism, depression, and neuropathy admitted on 12/11 for AMS after taking Lyrica the previous day. Upon admission he was found to have acute kidney injury with creatinine 3.82. His head CT was negative and U/A, electrolytes, TSH, B12, CBC, and ammonia were all grossly unremarkable. Nephrology was consulted for the TOBIN which improved with removal of offending nephrotoxic agents as well as IV hydration. Neurology was consulted for the AMS and EEG was negative. Because some of his BP agents were discontinued given their kidney injury potential, his antihypertensive medications were adjusted until his BPs were under control. The patient was discharged in stable condition on 12/16. - Time Spent with Patient Total time spent providing and/or coordinating discharge services: Less than 30 minutes - Quality: VTE Deep Vein Thrombosis/Pulmonary Embolism Present on Admission: No Exam Vital signs: Vital Signs 12/15/17 12:00 12/15/17 16:00 12/15/17 20:00 Temperature 98.6 F 97.8 F 97.5 F L Pulse Rate 58 L 64 72 Respiratory Rate 17 18 18 Blood Pressure 159/69 H 159/71 H 128/77 Pulse Oximetry 99 100 100 12/15/17 23:53 12/16/17 00:00 12/16/17 03:52 Temperature 97.7 F 97.5 F L Pulse Rate 65 59 L 62 Respiratory Rate 18 18 Blood Pressure 130/75 129/72 Pulse Oximetry 100 100 12/16/17 08:00 Temperature 97.9 F Pulse Rate 64 Respiratory Rate 19 Blood Pressure 170/79 H Pulse Oximetry 100 Intake & Output 12/15/17 12/16/17 12/16/17 18:59 06:59 18:59 Intake Total 1100 / 1100 240 / 240 Balance 1100 / 1100 240 / 240 Weight 135.4 kg Intake: Oral 1100 / 1100 240 / 240 Other: # Voids 10 3 Date of Last Bowel Movement 12/13/17 # Bowel Movements 1 Narrative: GENERAL: WN, WD AA male resting in bed in NAD. SKIN: Warm and dry. HEENT: AT/NC. Pupils equal and round. MMM. HEART: RRR no m/r/g. LUNGS: CTAB without wheezes or crackles. ABDOMEN: +BS, soft, NT, ND. EXTREMITIES: No LE edema. NEURO: Awake and alert. Oriented to person, place, time. PSYCH: Appropriate mood and affect. Results Procedures completed during hospitalization: None Completed studies during hospitalization: EEG 12/15 - normal - Impressions ITS Impressions Abdomen/Bladder Ultrasound 12/11/17 00:00 CONCLUSION: 1. 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 2. 6.3 cm lower pole left renal cyst. 3. Overall no significant change from February 2016. Chest X-Ray 12/11/17 17:26 CONCLUSION: Mild cardiac enlargement. Minimal basilar or dependent atelectasis. Head CT 12/11/17 17:26 CONCLUSION: 1. No acute intracranial abnormality. . Discharge Plan - Discharge Disposition Patient Disposition: /Home Health Service - Discharge Condition Condition: Stable - Discharge Order Discharge Orders: Discharge Order (Routine); Ordered 12/16/17 Ordered By: Alice Kuhn Neurology Clear for Discharge (Routine); Ordered 12/16/17 Ordered By: Siria Harris - Discharge Details Anticipated Discharge Date: 12/16/17 - Physicians Team Primary Care Provider: Kanwal Parsons Attending Provider: Alice Kuhn Other Providers: Esther Dietz MD ; Amy Reyes
--- NOTE | 2017-12-16 11:59 | P.PNNP ---
Subjective Interval history: Patient is alert, eating well, no complaint. Physical Exam Vital signs: Vital Signs 12/15/17 12:00 12/15/17 16:00 12/15/17 20:00 Temperature 98.6 F 97.8 F 97.5 F L Pulse Rate 58 L 64 72 Respiratory Rate 17 18 18 Blood Pressure 159/69 H 159/71 H 128/77 Pulse Oximetry 99 100 100 12/15/17 23:53 12/16/17 00:00 12/16/17 03:52 Temperature 97.7 F 97.5 F L Pulse Rate 65 59 L 62 Respiratory Rate 18 18 Blood Pressure 130/75 129/72 Pulse Oximetry 100 100 12/16/17 08:00 Temperature 97.9 F Pulse Rate 64 Respiratory Rate 19 Blood Pressure 170/79 H Pulse Oximetry 100 Intake & Output 12/15/17 12/16/17 12/16/17 18:59 06:59 18:59 Intake Total 1100 / 1100 240 / 240 Balance 1100 / 1100 240 / 240 Weight 135.4 kg Intake: Oral 1100 / 1100 240 / 240 Other: # Voids 10 3 Date of Last Bowel Movement 12/13/17 # Bowel Movements 1 Narrative: GENERAL: WN, WD AA male resting in bed in NAD. SKIN: Warm and dry. HEENT: AT/NC. Pupils equal and round. MMM. HEART: RRR no m/r/g. LUNGS: CTAB without wheezes or crackles. ABDOMEN: +BS, soft, NT, ND. EXTREMITIES: No LE edema. NEURO: Awake and alert. Oriented to person, place, time. PSYCH: Appropriate mood and affect. - Urinary Catheter Management Indwelling Urethral Catheter Cath placed during this visit: yes Reason for continuing: Acute urinary retention Insertion date: 12/11/17 Insertion time: 20:20 Assessment and Plan - Assessment (1) Acute kidney injury Code(s): N17.9 - Acute kidney failure, unspecified Status: Resolved Plan: Acute kidney injury with possibility of chronic kidney disease. TOBIN most likely prerenal from dehydration Possibly has chronic kidney disease because of hypertensive or renovascular disease Ultrasound with right kidney not visualized, reportedly congenitally atrophic, 6.3 cm lower pole left renal cyst Creatinine is improving at 1.37 with good urinary output On IVF, if taking PO well can discontinue IVF's VIRGINIE, ANCA pending. SPEP pending Avoid any nephrotoxins. Follow the urine output and the BUN and creatinine. No new BMP today. For discharge home. Told to follow with PCP.
--- NOTE | 2017-12-16 14:12 | P.PN ---
Subjective Interval history: Patient seen and examined. AFVSS. No acute events overnight. Pt ready to go home. Feels his mentation is improved. Advised not to go back on Lyrica and to pay close attention to his medication reconciliation as we have made changes to his home medications. He has no complaints. Denies CP, SOB, CANAS, abdominal pain, N/V. Physical Exam Vital signs: Vital Signs 12/15/17 16:00 12/15/17 20:00 12/15/17 23:53 Temperature 97.8 F 97.5 F L 97.7 F Pulse Rate 64 72 65 Respiratory Rate 18 18 18 Blood Pressure 159/71 H 128/77 130/75 Pulse Oximetry 100 100 100 12/16/17 00:00 12/16/17 03:52 12/16/17 08:00 Temperature 97.5 F L 97.9 F Pulse Rate 59 L 62 64 Respiratory Rate 18 19 Blood Pressure 129/72 170/79 H Pulse Oximetry 100 100 Intake & Output 12/15/17 12/16/17 12/16/17 18:59 06:59 18:59 Intake Total 1100 / 1100 240 / 240 Balance 1100 / 1100 240 / 240 Weight 135.4 kg Intake: Oral 1100 / 1100 240 / 240 Other: # Voids 10 3 Date of Last Bowel Movement 12/13/17 # Bowel Movements 1 Narrative: GENERAL: WN, WD AA male resting in bed in NAD. SKIN: Warm and dry. HEENT: AT/NC. Pupils equal and round. MMM. HEART: RRR no m/r/g. LUNGS: CTAB without wheezes or crackles. ABDOMEN: +BS, soft, NT, ND. EXTREMITIES: No LE edema. NEURO: Awake and alert. Oriented to person, place, time. PSYCH: Appropriate mood and affect. - Urinary Catheter Management Indwelling Urethral Catheter Cath placed during this visit: yes Reason for continuing: Acute urinary retention Insertion date: 12/11/17 Insertion time: 20:20 Results - Labs CBC & Chem 7: 12/12/17 12:05 12/15/17 04:50 Assessment and Plan - Assessment (1) Acute alteration in mental status Code(s): R41.82 - Altered mental status, unspecified Status: Acute (2) Acute kidney injury Code(s): N17.9 - Acute kidney failure, unspecified Status: Resolved - Plan 72 year old male with a history of HTN, anemia, hypothyroidism, depression, and neuropathy admitted on 12/11 for AMS. 1. Acute metabolic encephalopathy - resolved - Likely due to combination of medications and acute on chronic kidney injury - Head CT reviewed and shows no acute intracranial abnormality - B12, ammonia, TSH WNL - Neuro consulted since patient follows with Dr. Denis as outpatient - EEG normal - Hold sedating medications - Advised to discontinue Lyrica - PT recommending [facility] 2. Acute Kidney Injury - resolved - Creatine 3.82 on admission, down to 1.23 - Renal ultrasound shows a 6.3 cm lower pole renal cyst, no hydronephrosis - Nephrology consult appreciated - Creatinine improving with hydration - Good UOP - VIRGINIE negative, SPEP negative - Avoid nephrotoxic agents 3. Anemia - Hemodynamically stable - Monitor 4. HTN - BPs better after increasing hydralazine but still with some occasional high readings - Diuretics held secondary to TOBIN - Increase hydralazine to 100 mg PO TID - Add amlodipine on discharge - Continue Cardizem and enalapril - Clonidine PRN - Continue to monitor closely 5. Fibromyalgia - Continue Prozac - Avoid Lyrica Discussed Condition With: The patient Discharge Planning: D/C home with [facility] today
== END 2017-12-16 14:45 | disposition home health service (06) ==
LOC: NEPC 17:13 → NEDA 18:55 → N07 21:12
PROVIDERS: ADMIT Family Medicine; ATTEND Family Medicine